=== PATIENT | male | born 1935 | race American Indian/Alaskan Native ===

== ENCOUNTER 2017-10-21 16:24 | Inpatient (IN) | payer MEDICARE, MEDICAID ==
[2017-10-21 17:34] LABS: Basophils % (Auto) 0.3 % (0.0-1.8); Eosinophils % (Auto) 0.7 % (0.0-4.3); Hematocrit 33.8 % (35.5-45.6); Hemoglobin 11.3 gm/dl (11.8-15.2); Mean Corpuscular HGB Conc 34 % (32-34); Mean Corpuscular Hemoglobin 35 pg (28-32); Mean Corpuscular Volume 104 fl (84-94); Platelet Count 256 K/mm3 (140-440); Red Blood Count 3.24 M/mm3 (3.65-5.03); Red Cell Distribution Width 14.6 % (13.2-15.2)
[2017-10-21 17:46] LABS: Alanine Aminotransferase 10 units/L (7-56); Albumin 4.5 g/dL (3.9-5); Albumin/Globulin Ratio 1.4 %; Alkaline Phosphatase 88 units/L (35-129); Anion Gap 24 mmol/L; BUN/Creatinine Ratio 15; Blood Urea Nitrogen 20 mg/dL (9-20); Calcium 9.7 mg/dL (8.4-10.2); Carbon Dioxide 22 mmol/L (22-30); Chloride 97.7 mmol/L (98-107); Glucose 84 mg/dL (75-100); Potassium 4.3 mmol/L (3.6-5.0); Sodium 139 mmol/L (137-145); Total Protein 7.7 g/dL (6.3-8.2)
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
[2017-10-21 18:03] LABS: Urine Drugs of Abuse Note Disclamer
[2017-10-21 18:04] LABS: Creatine Kinase MB 7.6 ng/mL (0.0-4.0)
[2017-10-21 18:05] LABS: Creatine Kinase 430 units/L (55-170)
[2017-10-21 18:19] LABS: Bacteria,Urine 1+ /HPF (Negative); Bilirubin,Urine NEG (Negative); Blood,Urine NEG (Negative); Ketones,Urine TR mg/dL (Negative); Leukocyte Esterase,Urine NEG (Negative); Mucus,Urine FEW /HPF; Nitrite,Urine NEG (Negative); Protein,Urine <15 mg/dL mg/dL (Negative); Urobilinogen,Urine < 2.0 mg/dL (<2.0); WBC,Urine < 1.0 /HPF (0.0-6.0)
--- NOTE | 2017-10-21 18:56 | Cat Scan Report ---
FINAL REPORT EXAM: CT HEAD/BRAIN WO CON HISTORY: Syncope TECHNIQUE: Standard unenhanced CT of the head at 5.0 millimeter axial increments PRIORS: None. FINDINGS: The ventricular system is normal in size and configuration. There is mild cerebral and cerebellar atrophy. Small vessel ischemic changes are noted in the periventricular white matter bilaterally.. There is no evidence for mass lesion, mass effect, midline shift, acute intracranial hemorrhage, or acute ischemia/ infarction. Visualized paranasal sinuses demonstrates extensive mucosal thickening in the right maxillary sinus. There is also mild mucosal thickening in the right sphenoid sinus.. IMPRESSION: Mild cerebellar and cerebral atrophy with small vessel ischemic changes. No acute intracranial process noted.
[2017-10-21] MEDS ORDERED: ASPIRIN PO ONE (19:30)
[2017-10-21] MEDS ORDERED: DULCOLAX PR PRN (22:48)
[2017-10-21] MEDS ORDERED: MILK OF MAGNESIA PO PRN (22:48)
[2017-10-21] MEDS ORDERED: TYLENOL PO PRN (22:48)
[2017-10-21] MEDS ORDERED: ZOFRAN IV PRN (22:48)
[2017-10-21] MEDS ORDERED: ATIVAN IV PRN ×2 (22:51)
--- NOTE | 2017-10-21 22:51 | History and Physical Report ---
History of Present Illness Date of examination: 10/21/17 Date of admission: 10/21/17 19:26 History of present illness: 81-year-old male with a history of hypertension, comes emergency room because he was outside today raking leaves, went inside and then had a syncopal episode. It's unclear how long he syncopized for Review Of Systems: Constitutional: no weight loss Ears, eyes, nose, mouth and throat: no nasal congestion, no nasal discharge, no sinus pressure, blurry vision, diplopia Neck: No neck pain or rigidity. Cardiovascular:no chest pain, orthopnea, palpitations Respiratory: No shortness of breath, cough Gastrointestinal: no abdominal pain, hematochezia Genitourinary : no dysuria, frequency , hematuria Musculoskeletal: no muscle ache Integumentary: no rash, no pruritis Neurological: no parathesias, focal weakness Endocrine: no cold or heat intolerance, no polyuria or polydipsia Hematologic/Lymphatic: no easy bruising, no easy bleeding, no gland swelling Allergic/Immunologic: no urticaria, no angioedema. PAST MEDICAL HISTORY:hypertension PAST SURGICAL HISTORY: Left nephrectomy, hemorrhoidectomy, left knee FAMILY HISTORY: Hypertension SOCIAL HISTORY: Drinks 6 beers a day, no tobacco, drugs Medications and Allergies Allergies Allergy/AdvReac Type Severity Reaction Status Date / Time No Known Allergies Allergy Unverified 10/21/17 17:06 Home Medications Medication Instructions Recorded Confirmed Last Taken Type Cyanocobalamin [Vitamin B-12] 200 mcg PO QDAY #30 tablet 10/24/17 Unknown Rx amLODIPine [Norvasc] 10 mg PO QDAY #30 tablet 10/24/17 Unknown Rx Exam - Physical Exam Narrative exam: Gen. appearance: Patient lying in bed in no acute distress HEENT: Normocephalic/atraumatic, pupils equal round reactive to light, extra alkaline movement intact, no scleral icterus, no JVD or thyromegaly or nodule, neck is supple, mucous membrane moist, no erythema or exudate Heart: S1-S2, regular rate and rhythm Lungs: Clear to auscultation bilateral breathing comfortable Abdomen: Positive bowel sounds, nontender, nondistended, no organomegaly Extremities: No edema, cyanosis, clubbing Neuro:: Oriented 3 , cranial nerves II-12 intact, speech, motor intact Skin: No rash, nodules, warm dry - Constitutional Vitals: Temp Pulse Resp BP Pulse Ox 98.5 F 80 18 168/91 100 10/21/17 21:45 10/21/17 21:45 10/21/17 21:45 10/21/17 21:45 10/21/17 21:45 Results - Labs CBC & Chem 7: 10/22/17 04:59 10/23/17 05:04 Labs: Abnormal lab results 10/21/17 10/21/17 10/21/17 Range/Units 17:10 17:10 17:10 RBC 3.24 L (3.65-5.03) M/mm3 Hgb 11.3 L (11.8-15.2) gm/dl Hct 33.8 L (35.5-45.6) % MCV 104 H (84-94) fl MCH 35 H (28-32) pg Lymph % (Auto) 10.4 L (13.4-35.0) % [place] % (Auto) 10.4 H (0.0-7.3) % Lymph # 0.6 L (1.2-5.4) K/mm3 Seg Neutrophils % 78.2 H (40.0-70.0) % Chloride 97.7 L (98-107) mmol/L Lactic Acid 3.90 H* (0.7-2.0) mmol/L Total Creatine Kinase (55-170) units/L CK-MB (CK-2) (0.0-4.0) ng/mL Salicylates (2.8-20.0) mg/dL 10/21/17 10/21/17 Range/Units 17:10 17:10 RBC (3.65-5.03) M/mm3 Hgb (11.8-15.2) gm/dl Hct (35.5-45.6) % MCV (84-94) fl MCH (28-32) pg Lymph % (Auto) (13.4-35.0) % [place] % (Auto) (0.0-7.3) % Lymph # (1.2-5.4) K/mm3 Seg Neutrophils % (40.0-70.0) % Chloride (98-107) mmol/L Lactic Acid (0.7-2.0) mmol/L Total Creatine Kinase 430 H (55-170) units/L CK-MB (CK-2) 7.6 H (0.0-4.0) ng/mL Salicylates < 0.3 L (2.8-20.0) mg/dL - Imaging and Cardiology EKG: image reviewed Chest x-ray: image reviewed CT Scan - head: report reviewed Assessment and Plan Assessment Syncope Hypertension malignant Alcohol abuse Plan. Admitted to medicine and mitral cardiac enzymes, carotid Doppler, echo, consult cardiology iv hydralazine for blood pressure control, start CIWA protocol with IV Ativan DVT prophylaxis
[2017-10-22 00:17] LABS: Creatine Kinase 369 units/L (55-170)
[2017-10-22 05:22] LABS: Hematocrit 30.3 % (35.5-45.6); Mean Corpuscular HGB Conc 33 % (32-34); Mean Corpuscular Hemoglobin 34 pg (28-32); Mean Corpuscular Volume 103 fl (84-94); Platelet Count 265 K/mm3 (140-440); Red Blood Count 2.96 M/mm3 (3.65-5.03); Red Cell Distribution Width 14.4 % (13.2-15.2); White Blood Count 4.7 K/mm3 (4.5-11.0)
[2017-10-22 05:40] LABS: Chloride 104.6 mmol/L (98-107); Potassium 4.6 mmol/L (3.6-5.0)
[2017-10-22 05:43] LABS: Creatine Kinase 284 units/L (55-170)
[2017-10-22 06:34] LABS: Basophils % (Manual) 0 % (0.0-1.8); Blastocytes % (Manual) 0 %
[2017-10-22 06:35] LABS: Anisocytosis 1+; Diff Status Complete; Platelet Estimate Consistent w Auto
[2017-10-22] MEDS: NACL 0.45% 1000 ML 1,000 ML IV SCH (06:43)
[2017-10-22] MEDS ORDERED: VITAMIN B-1 100 MG, FOLVITE 1 MG, INFUVITE 10 ML in NACL 0.9% 1000 ML 1,000 ML IV ONE (10:00)
[2017-10-22] MEDS: NORVASC PO SCH (10:33)
--- NOTE | 2017-10-22 12:01 | Consultation ---
History of Present Illness Consult date: 10/22/17 Consult reason: syncope History of present illness: 81yr old male who was brought in with alteration of mental status. It's reported family member found the patient with alteration of mental status after he worked in the yard. There was no report of chest pain or shortness of breath. Patient denies palpitations. An ECG is a sinus rhythm, no acute ischemic changes. Cardiac consultation requested for further evaluation. Medications and Allergies Allergies Allergy/AdvReac Type Severity Reaction Status Date / Time No Known Allergies Allergy Unverified 10/21/17 17:06 Home Medications Medication Instructions Recorded Confirmed Last Taken Type No Known Home Medications [No 10/21/17 10/21/17 Unknown History Reported Home Medications] Active Meds: Active Medications Acetaminophen (Tylenol) 650 mg PO Q4H PRN PRN Reason: Pain MILD(1-3)/Fever >100.5/ALVES Amlodipine Besylate (Norvasc) 10 mg PO QDAY ROSE MARY Last Admin: 10/22/17 10:33 Dose: 10 mg Bisacodyl (Dulcolax) 10 mg MI QDAY PRN PRN Reason: Constipation unrelieved by MOM Sodium Chloride (Nacl 0.45% 1000 Ml) 1,000 mls @ 75 mls/hr IV DIRECT ROSE MARY Last Admin: 10/22/17 06:43 Dose: 75 mls/hr Thiamine HCl 100 mg/ Folic Acid 1 mg/ Multivitamins/Minerals 10 ml/ Sodium Chloride 1,011.2 mls @ 250 mls/hr IV ONCE ONE Stop: 10/22/17 14:02 Last Admin: 10/22/17 10:40 Dose: 250 mls/hr Lorazepam (Ativan) 2 mg IV Q1HR PRN PRN Reason: CIWA-Ar 8-15 Lorazepam (Ativan) 4 mg IV Q1HR PRN PRN Reason: CIWA-Ar 16-25 Magnesium Hydroxide (Milk Of Magnesia) 30 ml PO Q4H PRN PRN Reason: Constipation Ondansetron HCl (Zofran) 4 mg IV Q8H PRN PRN Reason: N/V unrelieved by Reglan Physical Examination Vital Signs Pulse 90 10/21/17 16:52 General appearance: no acute distress Cardiac: Positive: Reg Rate and Rhythm Neuro: Positive: Grossly Intact Results 10/22/17 04:59 10/22/17 04:59 Cardiac Enzymes 10/21/17 10/21/17 10/21/17 Range/Units 17:10 17:10 23:21 AST 29 (5-40) units/L CK-MB (CK-2) 7.6 H 6.0 H (0.0-4.0) ng/mL 10/22/17 Range/Units 04:59 AST (5-40) units/L CK-MB (CK-2) 4.0 (0.0-4.0) ng/mL CBC 10/21/17 10/22/17 Range/Units 17:10 04:59 WBC 6.0 4.7 (4.5-11.0) K/mm3 RBC 3.24 L 2.96 L (3.65-5.03) M/mm3 Hgb 11.3 L 10.0 L (11.8-15.2) gm/dl Hct 33.8 L 30.3 L (35.5-45.6) % Plt Count 256 265 (140-440) K/mm3 Lymph # 0.6 L (1.2-5.4) K/mm3 [place] # 0.6 (0.0-0.8) K/mm3 Eos # 0.0 (0.0-0.4) K/mm3 Baso # 0.0 (0.0-0.1) K/mm3 Comprehensive Metabolic Panel 10/21/17 10/22/17 Range/Units 17:10 04:59 Sodium 139 143 (137-145) mmol/L Potassium 4.3 4.6 (3.6-5.0) mmol/L Chloride 97.7 L 104.6 (98-107) mmol/L Carbon Dioxide 22 25 (22-30) mmol/L BUN 20 24 H (9-20) mg/dL Creatinine 1.3 1.5 (0.8-1.5) mg/dL Glucose 84 103 H (75-100) mg/dL Calcium 9.7 9.0 (8.4-10.2) mg/dL AST 29 (5-40) units/L ALT 10 (7-56) units/L Alkaline Phosphatase 88 (35-129) units/L Total Protein 7.7 (6.3-8.2) g/dL Albumin 4.5 (3.9-5) g/dL
--- NOTE | 2017-10-22 22:32 | Progress Note ---
Assessment and Plan Assessment and plan: 81 yo AAM with alcohol abuse admitted for presumed syncopal episode vs AMS Syncope Questionable syncope versus altered mental status due to alcohol use CT head with no acute abnormalities Carotid Doppler weight less than 50% stenosis bilaterally EKG with no acute changes Cardiology consulted and plans to obtain echocardiogram and stress test for cardiac ischemic assessment Alcohol abuse Give banana bag [place] protocol Counseled regarding importance of quitting Macrocytic anemia Likely secondary to alcohol abuse Check B12 and folate Elevated BP/Hypertension Start amlodipine Monitor BP Acute kidney injury Give IV fluids Monitor BUN/creatinine and electrolytes DVT/GI prophylaxis History Interval history: no complaints Hospitalist Physical - Constitutional Vitals: Temp Pulse Resp BP Pulse Ox 98.2 F 89 18 145/73 95 10/22/17 19:38 10/22/17 19:38 10/22/17 19:38 10/22/17 19:38 10/22/17 21:14 General appearance: Present: no acute distress - EENT Eyes: Present: PERRL, EOM intact - Neck Neck: Present: supple, normal ROM. Absent: masses or JVD - Respiratory Respiratory effort: normal Respiratory: bilateral: CTA, negative: rhonchi, wheezing - Cardiovascular Rhythm: regular Heart Sounds: Present: S1 & S2. Absent: systolic murmur - Extremities Extremities: no ischemia - Abdominal General gastrointestinal: soft, non-tender, non-distended, normal bowel sounds - Psychiatric Psychiatric: cooperative - Neurologic Neurologic: CNII-XII intact, no focal deficits Results - Labs CBC & Chem 7: 10/22/17 04:59 10/23/17 05:04 Labs: Laboratory Last Values WBC 4.7 K/mm3 (4.5-11.0) 10/22/17 04:59 RBC 2.96 M/mm3 (3.65-5.03) L 10/22/17 04:59 Hgb 10.0 gm/dl (11.8-15.2) L 10/22/17 04:59 Hct 30.3 % (35.5-45.6) L 10/22/17 04:59 MCV 103 fl (84-94) H 10/22/17 04:59 MCH 34 pg (28-32) H 10/22/17 04:59 MCHC 33 % (32-34) 10/22/17 04:59 RDW 14.4 % (13.2-15.2) 10/22/17 04:59 Plt Count 265 K/mm3 (140-440) 10/22/17 04:59 Lymph % (Auto) 10.4 % (13.4-35.0) L 10/21/17 17:10 [place] % (Auto) Knit Goods Mender 10/22/17 04:59 Eos % (Auto) 0.7 % (0.0-4.3) 10/21/17 17:10 Baso % (Auto) 0.3 % (0.0-1.8) 10/21/17 17:10 Lymph # 0.6 K/mm3 (1.2-5.4) L 10/21/17 17:10 [place] # 0.6 K/mm3 (0.0-0.8) 10/21/17 17:10 Eos # 0.0 K/mm3 (0.0-0.4) 10/21/17 17:10 Baso # 0.0 K/mm3 (0.0-0.1) 10/21/17 17:10 Add Manual Diff Complete 10/22/17 04:59 Total Counted 100 10/22/17 04:59 Seg Neutrophils % 78.2 % (40.0-70.0) H 10/21/17 17:10 Seg Neuts % (Manual) 69.0 % (40.0-70.0) 10/22/17 04:59 Band Neutrophils % 2.0 % 10/22/17 04:59 Lymphocytes % (Manual) 17.0 % (13.4-35.0) 10/22/17 04:59 Reactive Lymphs % (Man) 0 % 10/22/17 04:59 Monocytes % (Manual) 9.0 % (0.0-7.3) H 10/22/17 04:59 Eosinophils % (Manual) 3.0 % (0.0-4.3) 10/22/17 04:59 Basophils % (Manual) 0 % (0.0-1.8) 10/22/17 04:59 Metamyelocytes % 0 % 10/22/17 04:59 Myelocytes % 0 % 10/22/17 04:59 Promyelocytes % 0 % 10/22/17 04:59 Blast Cells % 0 % 10/22/17 04:59 Nucleated RBC % Not Reportable 10/22/17 04:59 Seg Neutrophils # 4.7 K/mm3 (1.8-7.7) 10/21/17 17:10 Seg Neutrophils # Man 3.2 K/mm3 (1.8-7.7) 10/22/17 04:59 Band Neutrophils # 0.1 K/mm3 10/22/17 04:59 Lymphocytes # (Manual) 0.8 K/mm3 (1.2-5.4) L 10/22/17 04:59 Abs React Lymphs (Man) 0.0 K/mm3 10/22/17 04:59 Monocytes # (Manual) 0.4 K/mm3 (0.0-0.8) 10/22/17 04:59 Eosinophils # (Manual) 0.1 K/mm3 (0.0-0.4) 10/22/17 04:59 Basophils # (Manual) 0.0 K/mm3 (0.0-0.1) 10/22/17 04:59 Metamyelocytes # 0.0 K/mm3 10/22/17 04:59 Myelocytes # 0.0 K/mm3 10/22/17 04:59 Promyelocytes # 0.0 K/mm3 10/22/17 04:59 Blast Cells # 0.0 K/mm3 10/22/17 04:59 WBC Morphology Not Reportable 10/22/17 04:59 Hypersegmented Neuts Not Reportable 10/22/17 04:59 Hyposegmented Neuts Not Reportable 10/22/17 04:59 Hypogranular Neuts Not Reportable 10/22/17 04:59 Smudge Cells Not Reportable 10/22/17 04:59 Toxic Granulation Not Reportable 10/22/17 04:59 Toxic Vacuolation Not Reportable 10/22/17 04:59 Dohle Bodies Not Reportable 10/22/17 04:59 Pelger-Huet Anomaly Not Reportable 10/22/17 04:59 Addison Rods Not Reportable 10/22/17 04:59 Platelet Estimate Consistent w auto 10/22/17 04:59 Clumped Platelets Not Reportable 10/22/17 04:59 Plt Clumps, EDTA Not Reportable 10/22/17 04:59 Large Platelets Not Reportable 10/22/17 04:59 Giant Platelets Not Reportable 10/22/17 04:59 Platelet Satelliting Not Reportable 10/22/17 04:59 Plt Morphology Comment Not Reportable 10/22/17 04:59 RBC Morphology Not Reportable 10/22/17 04:59 Dimorphic RBCs Not Reportable 10/22/17 04:59 Polychromasia Not Reportable 10/22/17 04:59 Hypochromasia Not Reportable 10/22/17 04:59 Poikilocytosis Not Reportable 10/22/17 04:59 Anisocytosis 1+ 10/22/17 04:59 Microcytosis Not Reportable 10/22/17 04:59 Macrocytosis Not Reportable 10/22/17 04:59 Spherocytes Not Reportable 10/22/17 04:59 Pappenheimer Bodies Not Reportable 10/22/17 04:59 Sickle Cells Not Reportable 10/22/17 04:59 Target Cells Not Reportable 10/22/17 04:59 Tear Drop Cells Not Reportable 10/22/17 04:59 Ovalocytes Not Reportable 10/22/17 04:59 Helmet Cells Not Reportable 10/22/17 04:59 [place] Bodies Not Reportable 10/22/17 04:59 [place] Rings Not Reportable 10/22/17 04:59 [place] Cells Not Reportable 10/22/17 04:59 Bite Cells Not Reportable 10/22/17 04:59 Crenated Cell Not Reportable 10/22/17 04:59 Elliptocytes Not Reportable 10/22/17 04:59 Acanthocytes (Spur) Not Reportable 10/22/17 04:59 Rouleaux Not Reportable 10/22/17 04:59 Hemoglobin C Crystals Not Reportable 10/22/17 04:59 Schistocytes Not Reportable 10/22/17 04:59 Malaria parasites Not Reportable 10/22/17 04:59 Kasi Bodies Not Reportable 10/22/17 04:59 Hem Pathologist Commnt No 10/22/17 04:59 Sodium 143 mmol/L (137-145) 10/22/17 04:59 Potassium 4.6 mmol/L (3.6-5.0) 10/22/17 04:59 Chloride 104.6 mmol/L (98-107) 10/22/17 04:59 Carbon Dioxide 25 mmol/L (22-30) 10/22/17 04:59 Anion Gap 18 mmol/L 10/22/17 04:59 BUN 24 mg/dL (9-20) H 10/22/17 04:59 Creatinine 1.5 mg/dL (0.8-1.5) 10/22/17 04:59 Estimated GFR 54 ml/min 10/22/17 04:59 BUN/Creatinine Ratio 16 % 10/22/17 04:59 Glucose 103 mg/dL (75-100) H 10/22/17 04:59 Lactic Acid 1.90 mmol/L (0.7-2.0) 10/21/17 20:15 Calcium 9.0 mg/dL (8.4-10.2) 10/22/17 04:59 Magnesium 1.80 mg/dL (1.7-2.3) 10/21/17 17:10 Total Bilirubin 0.70 mg/dL (0.1-1.2) 10/21/17 17:10 AST 29 units/L (5-40) 10/21/17 17:10 ALT 10 units/L (7-56) 10/21/17 17:10 Alkaline Phosphatase 88 units/L (35-129) 10/21/17 17:10 Total Creatine Kinase 284 units/L (55-170) H 10/22/17 04:59 CK-MB (CK-2) 4.0 ng/mL (0.0-4.0) 10/22/17 04:59 CK-MB (CK-2) Rel Index 1.4 (0-4) 10/22/17 04:59 Troponin T < 0.010 ng/mL (0.00-0.029) 10/22/17 04:59 Total Protein 7.7 g/dL (6.3-8.2) 10/21/17 17:10 Albumin 4.5 g/dL (3.9-5) 10/21/17 17:10 Albumin/Globulin Ratio 1.4 % 10/21/17 17:10 Vitamin B12 118.5 pg/mL (211-911) L 10/22/17 10:14 Folate 10.79 ng/mL (7.3-26.0) 10/22/17 10:14 TSH 2.990 mlU/mL (0.270-4.200) 10/21/17 17:10 Urine Color Yellow (Yellow) 10/21/17 18:03 Urine Turbidity Clear (Clear) 10/21/17 18:03 Urine pH 5.0 (5.0-7.0) 10/21/17 18:03 Ur Specific [place] 1.009 (1.003-1.030) 10/21/17 18:03 Urine Protein <15 mg/dl mg/dL (Negative) 10/21/17 18:03 Urine Glucose (UA) Neg mg/dL (Negative) 10/21/17 18:03 Urine Ketones Tr mg/dL (Negative) 10/21/17 18:03 Urine Blood Neg (Negative) 10/21/17 18:03 Urine Nitrite Neg (Negative) 10/21/17 18:03 Urine Bilirubin Neg (Negative) 10/21/17 18:03 Urine Urobilinogen < 2.0 mg/dL (<2.0) 10/21/17 18:03 Ur Leukocyte Esterase Neg (Negative) 10/21/17 18:03 Urine WBC (Auto) < 1.0 /HPF (0.0-6.0) 10/21/17 18:03 Urine RBC (Auto) 2.0 /HPF (0.0-6.0) 10/21/17 18:03 U Epithel Cells (Auto) < 1.0 /HPF (0-13.0) 10/21/17 18:03 Urine Bacteria (Auto) 1+ /HPF (Negative) 10/21/17 18:03 Urine Mucus Few /HPF 10/21/17 18:03 Salicylates < 0.3 mg/dL (2.8-20.0) L 10/21/17 17:10 Urine Opiates Screen Presumptive negative 10/21/17 18:03 Urine Methadone Screen Presumptive negative 10/21/17 18:03 Acetaminophen < 15.0 ug/mL (10.0-30.0) 10/21/17 17:10 Ur Barbiturates Screen Presumptive negative 10/21/17 18:03 Ur Phencyclidine Scrn Presumptive negative 10/21/17 18:03 Ur Amphetamines Screen Presumptive negative 10/21/17 18:03 U Benzodiazepines Scrn Presumptive negative 10/21/17 18:03 Urine Cocaine Screen Presumptive negative 10/21/17 18:03 U Marijuana (THC) Screen Presumptive negative 12/04/17 18:03 Drugs of Abuse Note Disclamer 10/21/17 18:03 Plasma/Serum Alcohol 0.05 gm% (0-0.07) 10/21/17 17:10
[2017-10-23] MEDS: NACL 0.45% 1000 ML 1,000 ML IV SCH ×2 (01:31→20:45)
[2017-10-23 06:03] LABS: Anion Gap 17 mmol/L; BUN/Creatinine Ratio 15; Blood Urea Nitrogen 15 mg/dL (9-20); Calcium 8.4 mg/dL (8.4-10.2); Carbon Dioxide 24 mmol/L (22-30); Chloride 103.7 mmol/L (98-107); Glucose 85 mg/dL (75-100); Potassium 3.9 mmol/L (3.6-5.0); Sodium 141 mmol/L (137-145)
[2017-10-23] MEDS: NORVASC PO SCH (09:46)
[2017-10-23] MEDS ORDERED: LEXISCAN IV ONE ×3 (10:40→11:18)
[2017-10-23] MEDS ORDERED: VITAMIN B-12 IM ONE ×2 (11:00→13:00)
[2017-10-23] MEDS ORDERED: VITAMIN B-12 PO SCH (11:00)
--- NOTE | 2017-10-23 11:15 | Progress Note ---
Assessment and Plan Altered mental status Questionable syncope EKG is normal sinus rhythm with poor with progression, normal ECG. Normal LVEF 55-60% on echocardiogram Plan: Persantine thallium stress test today for cardiac ischemic assessment. Results pending. Subjective Date of service: 10/23/17 Interval history: Patient has no complaints. For thallium stress test today. Objective Vital Signs Temp Pulse Resp BP BP Pulse Ox 10/23/17 10:00 98 10/23/17 09:46 165/80 10/23/17 08:46 98.6 F 65 18 165/84 98 10/23/17 04:56 98.1 F 69 18 141/61 95 10/23/17 00:03 98.1 F 79 18 123/63 97 10/22/17 21:14 95 10/22/17 19:38 98.2 F 89 18 145/73 100 10/22/17 19:25 74 10/22/17 16:35 72 131/68 95 10/22/17 12:12 70 168/73 98 10/22/17 12:00 72 - Physical Examination General: No Apparent Distress Cardiac: Positive: Reg Rate and Rhythm Neuro: Positive: Grossly Intact - Labs and Meds Comprehensive Metabolic Panel 10/23/17 Range/Units 05:04 Sodium 141 (137-145) mmol/L Potassium 3.9 (3.6-5.0) mmol/L Chloride 103.7 (98-107) mmol/L Carbon Dioxide 24 (22-30) mmol/L BUN 15 (9-20) mg/dL Creatinine 1.0 (0.8-1.5) mg/dL Glucose 85 (75-100) mg/dL Calcium 8.4 (8.4-10.2) mg/dL - Imaging and Cardiology EKG: image reviewed
[2017-10-23] MEDS ORDERED: MAGNESIUM SULFATE 1 GM in NACL 0.9% 50 ML IV ONE (11:30)
[2017-10-23] MEDS: VITAMIN B-12 PO SCH (14:42)
--- NOTE | 2017-10-23 19:03 | Progress Note ---
Assessment and Plan Assessment and plan: 81 yo AAM with alcohol abuse admitted for presumed syncopal episode vs AMS Syncope Questionable syncope versus altered mental status due to alcohol use CT head with no acute abnormalities Carotid Doppler weight less than 50% stenosis bilaterally EKG with no acute changes Cardiology consulted and obtained echocardiogram and stress test for cardiac ischemic assessment; awainting results Alcohol abuse S/p banana bag; start po thiamine, folate CIWA protocol Counseled regarding importance of quitting Macrocytic anemia Likely secondary to alcohol abuse and nutritional deficiencies; decreased B12; start supplementation Hypomagnesemia IV replacement and recheck in a.m. Hypertension Started on amlodipine Monitor BP Acute kidney injury Resolved with IV fluids DVT/GI prophylaxis History Interval history: doing well, no complaints Hospitalist Physical - Constitutional Vitals: Temp Pulse Resp BP Pulse Ox 98.4 F 87 18 136/75 97 10/23/17 17:02 10/23/17 17:02 10/23/17 17:02 10/23/17 17:02 10/23/17 17:02 General appearance: Present: no acute distress - EENT Eyes: Present: PERRL, EOM intact - Neck Neck: Present: supple, normal ROM. Absent: masses or JVD - Respiratory Respiratory effort: normal Respiratory: bilateral: CTA, negative: rhonchi, wheezing - Cardiovascular Rhythm: regular Heart Sounds: Present: S1 & S2. Absent: systolic murmur - Extremities Extremities: no ischemia - Abdominal General gastrointestinal: soft, non-tender, non-distended, normal bowel sounds - Psychiatric Psychiatric: cooperative - Neurologic Neurologic: CNII-XII intact, no focal deficits Results - Labs CBC & Chem 7: 10/22/17 04:59 10/23/17 05:04 Labs: Laboratory Last Values WBC 4.7 K/mm3 (4.5-11.0) 10/22/17 04:59 RBC 2.96 M/mm3 (3.65-5.03) L 10/22/17 04:59 Hgb 10.0 gm/dl (11.8-15.2) L 10/22/17 04:59 Hct 30.3 % (35.5-45.6) L 10/22/17 04:59 MCV 103 fl (84-94) H 10/22/17 04:59 MCH 34 pg (28-32) H 10/22/17 04:59 MCHC 33 % (32-34) 10/22/17 04:59 RDW 14.4 % (13.2-15.2) 10/22/17 04:59 Plt Count 265 K/mm3 (140-440) 10/22/17 04:59 Lymph % (Auto) 10.4 % (13.4-35.0) L 10/21/17 17:10 [place] % (Auto) [employer] Manager 10/22/17 04:59 Eos % (Auto) 0.7 % (0.0-4.3) 10/21/17 17:10 Baso % (Auto) 0.3 % (0.0-1.8) 10/21/17 17:10 Lymph # 0.6 K/mm3 (1.2-5.4) L 10/21/17 17:10 [place] # 0.6 K/mm3 (0.0-0.8) 10/21/17 17:10 Eos # 0.0 K/mm3 (0.0-0.4) 10/21/17 17:10 Baso # 0.0 K/mm3 (0.0-0.1) 10/21/17 17:10 Add Manual Diff Complete 10/22/17 04:59 Total Counted 100 10/22/17 04:59 Seg Neutrophils % 78.2 % (40.0-70.0) H 10/21/17 17:10 Seg Neuts % (Manual) 69.0 % (40.0-70.0) 10/22/17 04:59 Band Neutrophils % 2.0 % 10/22/17 04:59 Lymphocytes % (Manual) 17.0 % (13.4-35.0) 10/22/17 04:59 Reactive Lymphs % (Man) 0 % 10/22/17 04:59 Monocytes % (Manual) 9.0 % (0.0-7.3) H 10/22/17 04:59 Eosinophils % (Manual) 3.0 % (0.0-4.3) 10/22/17 04:59 Basophils % (Manual) 0 % (0.0-1.8) 10/22/17 04:59 Metamyelocytes % 0 % 10/22/17 04:59 Myelocytes % 0 % 10/22/17 04:59 Promyelocytes % 0 % 10/22/17 04:59 Blast Cells % 0 % 10/22/17 04:59 Nucleated RBC % Not Reportable 10/22/17 04:59 Seg Neutrophils # 4.7 K/mm3 (1.8-7.7) 10/21/17 17:10 Seg Neutrophils # Man 3.2 K/mm3 (1.8-7.7) 10/22/17 04:59 Band Neutrophils # 0.1 K/mm3 10/22/17 04:59 Lymphocytes # (Manual) 0.8 K/mm3 (1.2-5.4) L 10/22/17 04:59 Abs React Lymphs (Man) 0.0 K/mm3 10/22/17 04:59 Monocytes # (Manual) 0.4 K/mm3 (0.0-0.8) 10/22/17 04:59 Eosinophils # (Manual) 0.1 K/mm3 (0.0-0.4) 10/22/17 04:59 Basophils # (Manual) 0.0 K/mm3 (0.0-0.1) 10/22/17 04:59 Metamyelocytes # 0.0 K/mm3 10/22/17 04:59 Myelocytes # 0.0 K/mm3 10/22/17 04:59 Promyelocytes # 0.0 K/mm3 10/22/17 04:59 Blast Cells # 0.0 K/mm3 10/22/17 04:59 WBC Morphology Not Reportable 10/22/17 04:59 Hypersegmented Neuts Not Reportable 10/22/17 04:59 Hyposegmented Neuts Not Reportable 10/22/17 04:59 Hypogranular Neuts Not Reportable 10/22/17 04:59 Smudge Cells Not Reportable 10/22/17 04:59 Toxic Granulation Not Reportable 10/22/17 04:59 Toxic Vacuolation Not Reportable 10/22/17 04:59 Dohle Bodies Not Reportable 10/22/17 04:59 Pelger-Huet Anomaly Not Reportable 10/22/17 04:59 [place] Rods Not Reportable 10/22/17 04:59 Platelet Estimate Consistent w auto 10/22/17 04:59 Clumped Platelets Not Reportable 10/22/17 04:59 Plt Clumps, EDTA Not Reportable 10/22/17 04:59 Large Platelets Not Reportable 10/22/17 04:59 Giant Platelets Not Reportable 10/22/17 04:59 Platelet Satelliting Not Reportable 10/22/17 04:59 Plt Morphology Comment Not Reportable 10/22/17 04:59 RBC Morphology Not Reportable 10/22/17 04:59 Dimorphic RBCs Not Reportable 10/22/17 04:59 Polychromasia Not Reportable 10/22/17 04:59 Hypochromasia Not Reportable 10/22/17 04:59 Poikilocytosis Not Reportable 10/22/17 04:59 Anisocytosis 1+ 10/22/17 04:59 Microcytosis Not Reportable 10/22/17 04:59 Macrocytosis Not Reportable 10/22/17 04:59 Spherocytes Not Reportable 10/22/17 04:59 Pappenheimer Bodies Not Reportable 10/22/17 04:59 Sickle Cells Not Reportable 10/22/17 04:59 Target Cells Not Reportable 10/22/17 04:59 Tear Drop Cells Not Reportable 10/22/17 04:59 Ovalocytes Not Reportable 10/22/17 04:59 Helmet Cells Not Reportable 10/22/17 04:59 [place] Bodies Not Reportable 10/22/17 04:59 [place] Rings Not Reportable 10/22/17 04:59 [place] Cells Not Reportable 10/22/17 04:59 Bite Cells Not Reportable 10/22/17 04:59 Crenated Cell Not Reportable 10/22/17 04:59 Elliptocytes Not Reportable 10/22/17 04:59 Acanthocytes (Spur) Not Reportable 10/22/17 04:59 Rouleaux Not Reportable 10/22/17 04:59 Hemoglobin C Crystals Not Reportable 10/22/17 04:59 Schistocytes Not Reportable 10/22/17 04:59 Malaria parasites Not Reportable 10/22/17 04:59 Kasi Bodies Not Reportable 10/22/17 04:59 Hem Pathologist Commnt No 10/22/17 04:59 Sodium 141 mmol/L (137-145) 10/23/17 05:04 Potassium 3.9 mmol/L (3.6-5.0) 10/23/17 05:04 Chloride 103.7 mmol/L (98-107) 10/23/17 05:04 Carbon Dioxide 24 mmol/L (22-30) 10/23/17 05:04 Anion Gap 17 mmol/L 10/23/17 05:04 BUN 15 mg/dL (9-20) 10/23/17 05:04 Creatinine 1.0 mg/dL (0.8-1.5) 10/23/17 05:04 Estimated GFR > 60 ml/min 10/23/17 05:04 BUN/Creatinine Ratio 15 % 10/23/17 05:04 Glucose 85 mg/dL (75-100) 10/23/17 05:04 Lactic Acid 1.90 mmol/L (0.7-2.0) 10/21/17 20:15 Calcium 8.4 mg/dL (8.4-10.2) 10/23/17 05:04 Magnesium 1.60 mg/dL (1.7-2.3) L 10/23/17 05:04 Total Bilirubin 0.70 mg/dL (0.1-1.2) 10/21/17 17:10 AST 29 units/L (5-40) 10/21/17 17:10 ALT 10 units/L (7-56) 10/21/17 17:10 Alkaline Phosphatase 88 units/L (35-129) 10/21/17 17:10 Total Creatine Kinase 284 units/L (55-170) H 10/22/17 04:59 CK-MB (CK-2) 4.0 ng/mL (0.0-4.0) 10/22/17 04:59 CK-MB (CK-2) Rel Index 1.4 (0-4) 10/22/17 04:59 Troponin T < 0.010 ng/mL (0.00-0.029) 10/22/17 04:59 Total Protein 7.7 g/dL (6.3-8.2) 10/21/17 17:10 Albumin 4.5 g/dL (3.9-5) 10/21/17 17:10 Albumin/Globulin Ratio 1.4 % 10/21/17 17:10 Vitamin B12 118.5 pg/mL (211-911) L 10/22/17 10:14 Folate 10.79 ng/mL (7.3-26.0) 10/22/17 10:14 TSH 2.990 mlU/mL (0.270-4.200) 10/21/17 17:10 Urine Color Yellow (Yellow) 10/21/17 18:03 Urine Turbidity Clear (Clear) 10/21/17 18:03 Urine pH 5.0 (5.0-7.0) 10/21/17 18:03 Ur Specific [place] 1.009 (1.003-1.030) 10/21/17 18:03 Urine Protein <15 mg/dl mg/dL (Negative) 10/21/17 18:03 Urine Glucose (UA) Neg mg/dL (Negative) 10/21/17 18:03 Urine Ketones Tr mg/dL (Negative) 10/21/17 18:03 Urine Blood Neg (Negative) 10/21/17 18:03 Urine Nitrite Neg (Negative) 10/21/17 18:03 Urine Bilirubin Neg (Negative) 10/21/17 18:03 Urine Urobilinogen < 2.0 mg/dL (<2.0) 10/21/17 18:03 Ur Leukocyte Esterase Neg (Negative) 10/21/17 18:03 Urine WBC (Auto) < 1.0 /HPF (0.0-6.0) 10/21/17 18:03 Urine RBC (Auto) 2.0 /HPF (0.0-6.0) 10/21/17 18:03 U Epithel Cells (Auto) < 1.0 /HPF (0-13.0) 10/21/17 18:03 Urine Bacteria (Auto) 1+ /HPF (Negative) 10/21/17 18:03 Urine Mucus Few /HPF 10/21/17 18:03 Salicylates < 0.3 mg/dL (2.8-20.0) L 10/21/17 17:10 Urine Opiates Screen Presumptive negative 10/21/17 18:03 Urine Methadone Screen Presumptive negative 10/21/17 18:03 Acetaminophen < 15.0 ug/mL (10.0-30.0) 10/21/17 17:10 Ur Barbiturates Screen Presumptive negative 10/21/17 18:03 Ur Phencyclidine Scrn Presumptive negative 10/21/17 18:03 Ur Amphetamines Screen Presumptive negative 10/21/17 18:03 U Benzodiazepines Scrn Presumptive negative 10/21/17 18:03 Urine Cocaine Screen Presumptive negative 10/21/17 18:03 U Marijuana (THC) Screen Presumptive negative 10/21/17 18:03 Drugs of Abuse Note Disclamer 10/21/17 18:03 Plasma/Serum Alcohol 0.05 gm% (0-0.07) 10/21/17 17:10
--- NOTE | 2017-10-24 03:35 | Treadmill Report ---
INDICATION: Chest pain. ORDERING PHYSICIAN: Vaibhav Michelle MD FINDINGS: 1. There is no scintigraphic evidence of myocardial ischemia. There is a mild decrease in uptake noted in the inferior wall on the stress imaging due to overlying diaphragmatic/gut uptake artifact. 2. The left ventricle is normal in size with a systolic function of 70% and normal wall motion and wall thickening. CONCLUSION: 1. No scintigraphic evidence of myocardial ischemia. 2. Small and mildly reversible inferior wall defect noted on stress imaging likely secondary to adjacent liver and bowel uptake artifact. 3. Normal left ventricular size and systolic function. 4. This is a low risk myocardial perfusion scan associated with a 1-year cardiovascular mortality of less than 1%. JOB# [id number] YOUSIF/NIKA
--- NOTE | 2017-10-24 08:05 | Vascular Lab Report ---
CAROTID DUPLEX STUDY: RIGHT PSVEDV CCA PROX:8010 CCA DIST:04587 ICA PROX:22549 ICA MID:6112 ICA DIST:7218 ECA: 9010 VERT: 73 16 LEFT PSVEDV CCA PROX:9614 CCA DIST:8112 ICA PROX:6014 ICA MID:8720 ICA DIST:9424 ECA: 8010 VERT: 71 10 REASON FOR EXAM: Carotid artery stenosis/syncope. COMMENTS ON THE RIGHT: Doppler frequency analysis is consistent with 16 to 49 percent diameter reduction of the internal carotid artery. Minimal amount of plaque is seen. The common carotid artery is patent. The external carotid artery is patent. The vertebral artery has antegrade flow. COMMENTS ON THE LEFT: Doppler frequency analysis is consistent with 16 to 49 percent diameter reduction of the internal carotid artery. Minimal amount of plaque is seen. The common carotid artery is patent. The external carotid artery is patent. The vertebral artery has antegrade flow. IMPRESSION: Less than 50% diameter reduction in the internal carotid arteries bilaterally. Consider repeat carotid artery duplex in 12 months.
[2017-10-24] MEDS: VITAMIN B-12 PO SCH (10:20)
[2017-10-24] MEDS: NORVASC PO SCH (10:20)
--- NOTE | 2017-10-24 11:30 | Progress Note ---
Assessment and Plan Altered mental status vs Syncope No ischemia on MPI this admission EKG is normal sinus rhythm with poor with progression, normal ECG. Normal LVEF 55-60% on echocardiogram No further cardiac workup indicated. Subjective Date of service: 10/24/17 Interval history: Patient has no complaints. No events on telemetry monitoring. Objective Vital Signs Temp Pulse Resp BP BP Pulse Ox 10/24/17 07:28 97 10/24/17 05:00 78 18 142/81 97 10/23/17 23:59 98.4 F 73 18 134/80 97 10/23/17 20:00 85 10/23/17 19:52 98.1 F 87 18 132/75 97 10/23/17 19:37 98 10/23/17 17:02 98.4 F 87 18 136/75 97 10/23/17 12:50 98.5 F 89 18 165/91 98 10/23/17 12:11 94 H 180/86 10/23/17 12:10 100 H 182/94 10/23/17 12:09 99 H 179/97 10/23/17 12:08 102 H 182/107 10/23/17 12:07 101 H 209/107 10/23/17 12:00 83 10/23/17 11:31 80 192/95 - Physical Examination General: No Apparent Distress HEENT: Positive: PERRL Cardiac: Positive: Reg Rate and Rhythm Lungs: Positive: Decreased Breath Sounds Neuro: Positive: Grossly Intact - Imaging and Cardiology EKG: image reviewed
--- NOTE | 2017-10-24 16:38 | Discharge Summary ---
Providers - Providers Date of Admission: 10/21/17 19:26 Date of discharge: 10/24/17 Attending physician: ZOIE SIM 10/21/17 22:48 Consult to Physician [CONS] Routine Consulting Provider: LILA COOL Reason For Exam: syncope Place consult to:: Dr. Cool Notified:: Gilma MARTINEZ Phone number called:: Was contact made?: Yes If yes, spoke with:: [facility] Time called:: 08:04 Primary care physician: [employer] ATTENDANT Hospitalization Reason for admission: AMS Condition: Stable Pertinent studies: CT head Carotid Doppler ECHO Stress test Hospital course: Patient is a 81 yo AAM with alcohol abuse admitted for presumed syncopal episode vs AMS. CT had showed no acute abnormalities as well as cardiac ischemic assessment (normal echocardiogram and carotid Doppler, negative stress test). Diagnosed with macrocytic anemia secondary to alcohol abuse and nutritional deficiencies started on supplementation as well as hypertension for which he was started on CCB. Counseled regarding importance of quitting drinking. Discharged in stable condition with PCP follow-up. Discharge diagnoses: Presumed Syncope Alcohol abuse Macrocytic anemia Hypomagnesemia Hypertension Acute kidney injury Disposition: DC-01 TO HOME OR SELFCARE Time spent for discharge: 35 min Core Measure Documentation - Palliative Care Palliative Care/ Comfort Measures: Not Applicable - Core Measures Any of the following diagnoses?: none Exam - Physical Exam Narrative exam: Seen and examined; - Constitutional Vitals: Temp Pulse Resp BP Pulse Ox 97.9 F 78 18 145/78 97 10/24/17 12:01 10/24/17 12:01 10/24/17 12:01 10/24/17 12:01 10/24/17 12:01 General appearance: Present: no acute distress - EENT Eyes: Present: PERRL, EOM intact. Absent: scleral icterus, conjunctival injection - Neck Neck: Present: supple, normal ROM. Absent: masses or JVD - Respiratory Respiratory effort: normal Respiratory: bilateral: CTA, negative: rhonchi, wheezing - Cardiovascular Rhythm: regular Heart Sounds: Present: S1 & S2. Absent: systolic murmur - Extremities Extremities: no ischemia - Abdominal General gastrointestinal: Present: soft, non-tender, non-distended, normal bowel sounds - Psychiatric Psychiatric: cooperative - Neurologic Neurologic: CNII-XII intact, no focal deficits Plan Activity: advance as tolerated, fall precautions Diet: low cholesterol, low salt Special Instructions: other (refrain from drinking alcohol) Follow up with: [facility] [Provider Group] - 7 Days PRIMARY CARE, [Primary Care Provider] - 3-5 Days Prescriptions: amLODIPine [Norvasc] 10 mg PO QDAY #30 tablet Cyanocobalamin [Vitamin B-12] 200 mcg PO QDAY #30 tablet
[2017-10-24 17:39] VITALS: BP 152/83
--- NOTE | 2017-10-31 13:34 | Query-Altered Level of Consc. ---
Jose Raul Charles____Dilip Date: 10/31/17 [employer]/CDS:____[place] / [place] Phone#:____[phone] Exercise your independent professional judgment when responding to this query. Questions asked do not imply a particular answer is desired or expected. We greatly appreciate your clarification on this issue. Clinical Documentation States: 81 year old male was admitted on 10/21/17 The discharge summary (Dr. Cherry) states " Reason for admission: AMS Patient is a 81 yo AAM with alcohol abuse admitted for presumed syncopal episode vs AMS Discharge diagnoses: Presumed Syncope " Clinical Findings Show: Please provide an appropriate diagnosis clarifying the Etiology and Acuity of this clinical scenario: [ ] Metabolic Encephalopathy [ ] Toxic Encephalopathy [ x] Toxic - Metabolic Encephalopathy [ ] Septic Encephalopathy with Sepsis [ ] Septic Encephalopathy without Sepsis [ ] Acute Hepatic Encephalopathy [ ] Subacute Hepatic Encephalopathy [ ] Encephalopathy [ ] Other: [ ] Unable To Determine [ ]Comment/Explanation: Present on Admission: [ x] Yes (Y) [ ] Clinically undeterminable (W) [ ] No (N) Please also document response in your Progress Notes and/or Discharge Summary and indicate if the condition was present on admission. HARMONYD
== END 2017-10-24 19:00 | disposition home or self-care (01) | DRG 682 ==
LOC: ED 16:24 → 4A 19:26
PROVIDERS: ADMIT Internal Medicine; ATTEND Internal Medicine
DX: N17.9 Acute kidney failure, unspecified (principal); G92 Toxic encephalopathy; F10.188 Alcohol abuse with other alcohol-induced disorder; R41.82 Altered mental status, unspecified; I10 Essential (primary) hypertension; Z90.5 Acquired absence of kidney; Z82.49 Family history of ischemic heart disease and other diseases of the circulatory system
CPT/HCPCS: 36415; 70450; 78452; 80048; 80053; 80307; 80320; 81001; 82140; 82550; 82553; 82607; 82747; 83735; 84443; 84484; 85007; 85025; 93005; 93010; 93017; 93306; 93880; 94760; A9502; G0480; J2785; J3411; J3420; J3475; J7030

== ENCOUNTER 2019-09-10 17:51 | Observation (INO) | payer MEDICARE ==
[2019-09-10] MEDS ORDERED: MORPHINE 2 MG/1 ML INJ IV ONE (18:38)
[2019-09-10] MEDS ORDERED: SODIUM CHLORIDE 0.9% 1000 ML 1,000 ML IV ONE (18:38)
[2019-09-10 19:27] LABS: Basophils # (Auto) 0.1 K/mm3 (0.0-0.1); Basophils % (Auto) 1.2 % (0.0-1.8); Eosinophils # (Auto) 0.1 K/mm3 (0.0-0.4); Eosinophils % (Auto) 1.4 % (0.0-4.3); Hematocrit 32.7 % (35.5-45.6); Lymphocytes # (Auto) 0.9 K/mm3 (1.2-5.4); Lymphocytes % (Auto) 17.7 % (13.4-35.0); Mean Corpuscular HGB Conc 34 % (32-34); Mean Corpuscular Volume 98 fl (84-94); Monocytes # (Auto) 0.6 K/mm3 (0.0-0.8); Monocytes % (Auto) 10.9 % (0.0-7.3); Platelet Count 423 K/mm3 (140-440); Red Blood Count 3.33 M/mm3 (3.65-5.03); Red Cell Distribution Width 13.5 % (13.2-15.2)
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
[2019-09-10 19:46] LABS: Bilirubin,Urine NEG (Negative); Blood,Urine NEG (Negative); Color,Urine Yellow (Yellow); Urobilinogen,Urine < 2.0 mg/dL (<2.0); WBC,Urine < 1.0 /HPF (0.0-6.0)
[2019-09-10 19:54] LABS: Calcium 10.5 mg/dL (8.4-10.2)
[2019-09-10 20:15] LABS: Chol/HDL Ratio 2.19 %
--- NOTE | 2019-09-10 20:53 | Cat Scan Report ---
CT ABDOMEN AND PELVIS WITHOUT CONTRAST INDICATION / CLINICAL INFORMATION: back pain. TECHNIQUE: Axial CT images were obtained through the abdomen and pelvis without IV contrast. All CT scans at [facility] location are performed using CT dose reduction for ALARA by means of automated exposure control. COMPARISON: None available. FINDINGS: LOWER CHEST: Minimum chronic pulmonary changes both bases LIVER: No significant abnormality. GALLBLADDER: Cholelithiasis BILE DUCTS: No significant abnormality. PANCREAS: No significant abnormality. SPLEEN: No significant abnormality. ADRENALS: No significant abnormality. RIGHT KIDNEY and URETER: No significant abnormality. LEFT KIDNEY and URETER: Absent STOMACH and SMALL BOWEL: No significant abnormality. COLON: No significant abnormality. APPENDIX: No significant abnormality. PERITONEUM: No free fluid. No free air. No fluid collection. LYMPH NODES: No significant adenopathy. AORTA and ARTERIES: Dense calcified atherosclerotic plaque abdominal aorta is major branches IVC and VEINS: No significant abnormality. URINARY BLADDER: No significant abnormality. REPRODUCTIVE ORGANS: No significant abnormality. ADDITIONAL FINDINGS: None. SKELETAL SYSTEM: Bones are osteopenic. Compression fracture L3 is noted age difficult to determine IMPRESSION: 1. No significant abnormality. 2. Compression fracture L3 3. Absent left kidney-previous nephrectomy 4. Cholelithiasis Signer Name: Milton Woodall MD Signed: 09/10/2019 8:49 PM Workstation Name: [id number]
[2019-09-10] MEDS ORDERED: ONDANSETRON 4 MG/2 ML INJ IV PRN (22:44)
[2019-09-10] MEDS ORDERED: ACETAMINOPHEN 325 MG TAB PO PRN (22:44)
[2019-09-10] MEDS ORDERED: oxyCODONE /ACETAMINOPHEN 5-325MG TAB PO PRN (22:54)
[2019-09-10] MEDS ORDERED: hydrALAZINE 20 MG/1 ML INJ IV PRN (22:57)
[2019-09-10] MEDS ORDERED: SODIUM CHLORIDE 0.9% 1000 ML 1,000 ML IV SCH (23:00)
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
[2019-09-11] MEDS ORDERED: LORazepam 2 MG/ML VIAL IV PRN ×2 (00:32)
[2019-09-11 08:05] LABS: Basophils % (Auto) 0.6 % (0.0-1.8); Eosinophils # (Auto) 0.1 K/mm3 (0.0-0.4); Eosinophils % (Auto) 1.8 % (0.0-4.3); Hematocrit 29.4 % (35.5-45.6); Hemoglobin 10.1 gm/dl (11.8-15.2); Lymphocytes # (Auto) 0.9 K/mm3 (1.2-5.4); Lymphocytes % (Auto) 20.2 % (13.4-35.0); Mean Corpuscular HGB Conc 34 % (32-34); Mean Corpuscular Volume 98 fl (84-94); Monocytes # (Auto) 0.5 K/mm3 (0.0-0.8); Monocytes % (Auto) 10.4 % (0.0-7.3); Platelet Count 423 K/mm3 (140-440); Red Blood Count 3.02 M/mm3 (3.65-5.03); Red Cell Distribution Width 13.3 % (13.2-15.2)
[2019-09-11 08:22] LABS: Creatine Kinase MB 2.3 ng/mL (0.0-4.0)
[2019-09-11 08:23] LABS: BUN/Creatinine Ratio 18; Blood Urea Nitrogen 24 mg/dL (9-20); Calcium 9.7 mg/dL (8.4-10.2); Hemolysis Index 0
[2019-09-11 08:24] LABS: Creatine Kinase MB 2.1 ng/mL (0.0-4.0)
[2019-09-11] MEDS ORDERED: amLODIPine 5 MG TAB PO SCH (10:00)
[2019-09-11] MEDS ORDERED: METOPROLOL TARTRATE 50 MG TAB PO SCH (10:00)
[2019-09-11] MEDS ORDERED: HEPARIN 5,000 UNIT/1 ML VIAL SUB-Q SCH (10:00)
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
[2019-09-11 14:25] VITALS: BP 113/62
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
== END 2019-09-11 19:00 ==
LOC: ED 17:51 → INTOOBSV 22:44 → 2B-ACE 22:44
PROVIDERS: ADMIT Internal Medicine; ATTEND Internal Medicine
DX: M48.56XA Collapsed vertebra, not elsewhere classified, lumbar region, initial encounter for fracture (principal); N17.9 Acute kidney failure, unspecified; I73.9 Peripheral vascular disease, unspecified; E87.5 Hyperkalemia; E87.1 Hypo-osmolality and hyponatremia; D64.9 Anemia, unspecified; K80.20 Calculus of gallbladder without cholecystitis without obstruction; I10 Essential (primary) hypertension; F10.20 Alcohol dependence, uncomplicated; Z86.718 Personal history of other venous thrombosis and embolism
CPT/HCPCS: 36415; 74176; 80048; 80053; 80061; 81001; 82550; 82553; 83690; 84484; 85025; 93005; 93010; 93306; 96372; 96374; 99284; G0378; J1644; J2270; J7030

== ENCOUNTER 2020-09-22 10:04 | Outpatient (CLI) | payer MEDICARE ==
--- NOTE | 2020-09-22 14:08 | Cat Scan Report ---
CT ABDOMEN AND PELVIS WITHOUT CONTRAST INDICATION / CLINICAL INFORMATION: Hematuria. TECHNIQUE: Axial CT images were obtained through the abdomen and pelvis without IV contrast. All CT scans at this location are performed using CT dose reduction for ALARA by means of automated exposure control. COMPARISON: CT dated 09/10/19 FINDINGS: LOWER CHEST: Mild bibasilar scarring is unchanged. LIVER: Simple appearing cyst is unchanged. No acute abnormality. GALLBLADDER: Multiple small gallstones are unchanged. No inflammation. BILE DUCTS: No significant biliary ductal dilatation. Tiny 2.5 mm stone in the distal common bile marilyn t at the ampulla as seen on axial series 2 image 56 and coronal image 44. PANCREAS: No significant abnormality. SPLEEN: No significant abnormality. ADRENALS: No significant abnormality. RIGHT KIDNEY / URETER: No stones or hydronephrosis. Simple appearing cyst is unchanged. LEFT KIDNEY / URETER: Left nephrectomy. STOMACH / SMALL BOWEL: No significant abnormality. COLON: Diverticulosis without inflammation. APPENDIX: No significant abnormality. PERITONEUM: No free fluid. No free air. No fluid collection. LYMPH NODES: No significant adenopathy. AORTA / ARTERIES: Moderate atherosclerotic calcification without acute abnormality. 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 IVC / VEINS: No significant abnormality. URINARY BLADDER: Bladder is mildly distended and diffusely thick walled. No bladder stones. Small marita dder diverticula are present. Curvilinear hyperdensity in the dependent urinary bladder likely repres ents hematoma. REPRODUCTIVE ORGANS: No significant abnormality. ADDITIONAL FINDINGS: Collateral veins along the lower anterior abdominal wall/pelvis are unchanged. SKELETAL SYSTEM: Interval progression of L3 compression deformity. Stable mild T12 compression deform ity. No acute osseous abnormality. IMPRESSION: 1. No urinary tract stones or hydronephrosis. 2. Probable urinary bladder intravesical hematoma of uncertain etiology. 3. Bladder wall thickening with small diverticula which can be seen in chronic bladder outlet obstruc tion. 4. Cholelithiasis with nonobstructing distal common bile duct stone measuring 2.5 mm. Signer Name: Hola Whyte MD Signed: 09/22/2020 2:04 PM Workstation Name: [id number]
== END 2020-09-22 10:05 | disposition home or self-care (01) ==
LOC: CT 10:04
PROVIDERS: ATTEND Urology
DX: K80.20 Calculus of gallbladder without cholecystitis without obstruction (principal); N32.89 Other specified disorders of bladder; I70.0 Atherosclerosis of aorta; K57.30 Diverticulosis of large intestine without perforation or abscess without bleeding; R31.0 Gross hematuria; Z90.5 Acquired absence of kidney
CPT/HCPCS: 74176

== ENCOUNTER 2021-05-31 11:37 | Inpatient (IN) | payer MEDICARE, MEDICAID ==
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
--- NOTE | 2021-05-31 12:14 | Consultation ---
History of Present Illness - Reason for Consult Consult date: 05/31/21 Medications and Allergies Allergies Allergy/AdvReac Type Severity Reaction Status Date / Time No Known Allergies Allergy Unverified 10/21/17 17:06 Home Medications Medication Instructions Recorded Confirmed Last Taken Type Metoprolol [Lopressor TAB] 50 mg PO BID #60 tablet 09/11/19 Unknown Rx oxyCODONE /ACETAMINOPHEN [Percocet 1 tab PO Q6H PRN #15 tablet 09/11/19 Unknown Rx 5/325 mg]
--- NOTE | 2021-05-31 12:20 | Cat Scan Report ---
CT BRAIN: 05/31/2021 INDICATION / CLINICAL INFORMATION: Stroke symptoms. COMPARISON: 10/30/2018 FINDINGS: BRAIN/INTRACRANIAL STRUCTURES: Unenhanced CT images of the brain demonstrate no evidence of acute abn ormality. Ventricles and sulci are prominent in size, consistent with age-related atrophic change. Extensive chronic white matter hypoattenuation is present. There is no evidence of acute ischemic injury, hemorrhage, or mass. There are no abnormal extra-axial fluid collections. EXTRACRANIAL STRUCTURES: Unremarkable. IMPRESSION: No acute abnormality. Extensive chronic and age-related changes. No significant change when compared to 10/30/2018. Notification: in the emergency department 12:[address] scans at this location are performed using dose reduction to ALARA by means of automated expos ure control. Signer Name: Timbo Shah MD Signed: 05/31/2021 12:16 PM Workstation Name: [id number]
--- NOTE | 2021-05-31 12:25 | XRay Report ---
CHEST 1 VIEW 05/31/2021 12:14 PM INDICATION / CLINICAL INFORMATION: syncope. COMPARISON: None available. FINDINGS: SUPPORT DEVICES: None. HEART / MEDIASTINUM: No significant abnormality. LUNGS / PLEURA: No significant pulmonary or pleural abnormality. No pneumothorax. ADDITIONAL FINDINGS: No significant additional findings. IMPRESSION: 1. No acute findings. Signer Name: Poli Vidal MD Signed: 05/31/2021 12:21 PM Workstation Name: [id number]
--- NOTE | 2021-05-31 12:42 | Cat Scan Report ---
CT CERVICAL SPINE: 05/31/2021 INDICATION / CLINICAL INFORMATION: syncope/stroke. COMPARISON: None available. FINDINGS: CT images of the cervical spine were obtained. Images are evaluated in the axial, coronal, and sagitt al planes. There is no evidence of acute abnormality. The bones are diffusely osteopenic. Degenerative disc space narrowing is present at the C2-3 and C3-4 levels. There is no evidence of fracture. CRANIOCERVICAL JUNCTION: Unremarkable. PARASPINAL STRUCTURES: Unremarkable IMPRESSION: No acute abnormality. Osteopenia and degenerative changes. All CT scans at this location are performed using dose reduction to ALARA by means of automated expos ure control. Signer Name: Timbo Shah MD Signed: 05/31/2021 12:38 PM Workstation Name: [id number]
[2021-05-31 13:00] LABS: Basophils # (Auto) 0.1 K/mm3 (0.0-0.1); Basophils % (Auto) 0.8 % (0.0-1.8); Eosinophils # (Auto) 0.1 K/mm3 (0.0-0.4); Eosinophils % (Auto) 0.8 % (0.0-4.3); Hematocrit 39.7 % (35.5-45.6); Hemoglobin 13.1 gm/dl (11.8-15.2); Lymphocytes # (Auto) 1.1 K/mm3 (1.2-5.4); Mean Corpuscular HGB Conc 33 % (32-34); Mean Corpuscular Volume 96 fl (84-94); Monocytes # (Auto) 0.4 K/mm3 (0.0-0.8); Monocytes % (Auto) 5.2 % (0.0-7.3); Platelet Count 323 K/mm3 (140-440); Red Blood Count 4.14 M/mm3 (3.65-5.03); Red Cell Distribution Width 14.4 % (13.2-15.2)
[2021-05-31 13:11] LABS: INR 1.04 (0.87-1.13); Partial Thromboplastin Time 27.5 Sec. (24.2-36.6); Thrombin Time 18.1 Sec. (15.1-19.6)
[2021-05-31 13:14] LABS: Creatine Kinase MB 2.1 ng/mL (0.0-4.0)
[2021-05-31 13:15] LABS: Albumin 4.7 g/dL (3.9-5); Calcium 10.1 mg/dL (8.4-10.2)
[2021-05-31] MEDS ORDERED: LACTATED RINGERS 1,000 ML IV ONE (13:25)
[2021-05-31 17:35] LABS: Chol/HDL Ratio 2.51 %
[2021-05-31 20:09] LABS: Bilirubin,Urine NEG (Negative); Blood,Urine NEG (Negative); Color,Urine Yellow (Yellow); Mucus,Urine FEW /HPF; Sperm,Urine 1+ /HPF (NP); Urobilinogen,Urine < 2.0 mg/dL (<2.0)
[2021-05-31 20:10] LABS: Amphetamine Screen,Urine Negative; Benzodiazepines Screen,Urine Negative; Cannabinoid Screen,Urine Negative; Cocaine Screen,Urine Negative; Methadone Screen,Urine Negative; Opiate Screen,Urine Negative
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
[2021-06-01] MEDS ORDERED: HYDROmorphone 1 MG/1 ML INJ IV PRN (00:17)
[2021-06-01] MEDS ORDERED: ACETAMINOPHEN 325 MG TAB PO PRN (00:17)
[2021-06-01] MEDS ORDERED: oxyCODONE /ACETAMINOPHEN 5-325MG TAB PO PRN (00:17)
[2021-06-01] MEDS ORDERED: ONDANSETRON 4 MG/2 ML INJ IV PRN (00:17)
[2021-06-01] MEDS ORDERED: SODIUM CHLORIDE 0.45% 1000 ML 1,000 ML IV SCH (01:00)
[2021-06-01] MEDS: METOPROLOL TARTRATE 50 MG TAB PO SCH ×3 (03:19→16:40)
[2021-06-01] MEDS: FAMOTIDINE 20 MG/2 ML INJ IV SCH ×2 (08:51→09:02)
[2021-06-01] MEDS: NIFEdipine XL 30 MG TAB PO SCH ×2 (08:51→09:02)
--- NOTE | 2021-06-01 09:54 | Consultation ---
History of Present Illness - Reason for Consult Consult date: 06/01/21 acute renal failure - History of Present Illness 85-year-old male with history of EtOH dependence, mild dementia and hypertension was under the shoulder on 11 AM and was about to pass out. Did not pass out completely. Patient noticed right facial droop and a stroke alert was initiated by EMS. In the emergency room patient did not have any focal deficits. CT head was negative for acute intracranial process, CXR was normal . he was found to have elevated cr and K and was started on IVF and renal consult was requested Past History Past Medical History: hypertension Medications and Allergies Allergies Allergy/AdvReac Type Severity Reaction Status Date / Time No Known Allergies Allergy Unverified 10/21/17 17:06 Home Medications Medication Instructions Recorded Confirmed Last Taken Type Losartan [Cozaar] 25 mg PO QDAY 05/31/21 05/31/21 Unknown History Metoprolol [Lopressor TAB] 50 mg PO BID 05/31/21 05/31/21 Unknown History NIFEdipine [Nifedipine ER] 30 mg PO QDAY 05/31/21 05/31/21 Unknown History Active Meds: Active Medications Acetaminophen (Acetaminophen 325 Mg Tab) 650 mg PO Q4H PRN PRN Reason: Pain MILD(1-3)/Fever >100.5/ALVES Famotidine (Famotidine 20 Mg/2 Ml Inj) 20 mg IV QAM [facility] Last Admin: 06/01/21 09:02 Dose: 20 mg Documented by: Hydromorphone HCl (Hydromorphone 1 Mg/1 Ml Inj) 0.5 mg IV Q3H PRN PRN Reason: Pain , Severe (7-10) Sodium Bicarbonate 150 meq/ (Dextrose) 1,150 mls @ 125 mls/hr IV DIRECT [facility] Metoprolol Tartrate (Metoprolol Tartrate 50 Mg Tab) 50 mg PO BID@0800,1700 [facility] Last Admin: 06/01/21 08:44 Dose: 50 mg Documented by: Nifedipine (Nifedipine Xl 30 Mg Tab) 30 mg PO QDAY [facility] Last Admin: 06/01/21 09:02 Dose: 30 mg Documented by: Ondansetron HCl (Ondansetron 4 Mg/2 Ml Inj) 4 mg IV Q8H PRN PRN Reason: Nausea And Vomiting Oxycodone/Acetaminophen (Oxycodone /Acetaminophen 5-325mg Tab) 1 tab PO Q6H PRN PRN Reason: Pain, Moderate (4-6) Sodium Chloride (Sodium Chloride 0.9% 10 Ml Flush Syringe) 10 ml IV BID [facility] Last Admin: 06/01/21 09:02 Dose: 10 ml Documented by: Sodium Chloride (Sodium Chloride 0.9% 10 Ml Flush Syringe) 10 ml IV PRN PRN PRN Reason: LINE FLUSH Review of Systems All systems: negative (weakness) Exam - Vital Signs Vital signs: Vital Signs Pulse Resp 70 11 L 05/31/21 12:08 05/31/21 12:08 - General Appearance General appearance: well-developed, well-nourished EENT: ATNC, PERRL Neck: Present: neck supple Respiratory: Clear to Ascultation Heart: regular, S1S2 Gastrointestinal: Present: normoactive bowel sounds. Absent: tenderness, distended, masses Integumentary: no rash, warm and dry Neurologic: no asterixis Musculoskeletal: Present: other (no edema in BLE) Psychiatric: cooperative Results - Lab Results 05/31/21 11:46 05/31/21 11:46 Most recent lab results Calcium 10.1 mg/dL (8.4-10.2) 05/31/21 11:46 Assessment and Plan (1) Vasovagal near syncope (2) TAMANNA (acute kidney injury) (3) Hyperkalemia (4) Elevated troponin (5) Hypertension (6) Facial nerve disorder, unspecified TAMANNA is secondary to prerenal azotemia vs ATN, noted to have similar episodes in the past was started on IVF but no other treatment were documented for hyperkalemia, nephrology consult was not called to physician adapted physical education aide and immediate recommendation regarding treating hyperkalemia was not requested by primary team, no BMP this AM. STAT BMP and EKG ordered, will switch IVF to sodium bicarb 150 meq @ 125 cc/h renal US ordered urine lytes ordered renally dose meeds strict I&O daily weights Aly Gaffney MD [phone]
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
--- NOTE | 2021-06-01 10:43 | Electrocardiograph Report ---
[facility] Test Date: 2021-05-31 Test Time: 12:15:32 Pat Name: KIMBERLY SEAMAN Department: Room: A487 Gender: M [employer] Teacher: IFEANYI : 1935 Requested By: JUDY POWELL Order Number: [id number] Reading MD: Toño Hernández Measurements Intervals [place] Rate: 65 P: 46 VT: 169 QRS: 3 QRSD: 87 T: 34 QT: 388 QTc: 405 Interpretive Statements Sinus rhythm No previous ECG available for comparison Electronically Signed On 06-01-2021 10:43:25 EDT by Toño Hernández
--- NOTE | 2021-06-01 11:14 | Vascular Lab Report ---
DUPLEX DOPPLER ULTRASOUND CAROTID, BILATERAL INDICATION / CLINICAL INFORMATION: Near syncope. COMPARISON: None available. FINDINGS: RIGHT CAROTID: Moderate plaque in the CCA, carotid bifurcation - PLAQUE ESTIMATE (%): < 50% - CCA velocity: 112 cm/sec. - ICA peak systolic velocity: 98 cm/sec. - ICA/CCA PSV Ratio: 0.8 Right Vertebral Artery: Antegrade flow. LEFT CAROTID: Moderate plaque in CCA, ECA and ICA - PLAQUE ESTIMATE: < 50% - CCA velocity: 98 cm/sec. - ICA peak systolic velocity: 103 cm/sec. - ICA/CCA PSV Ratio: 1.06 Left Vertebral Artery: Antegrade flow. IMPRESSION: 1. Right Internal Carotid Artery: Less than 50% diameter stenosis. 2. Left Internal Carotid Artery: Less than 50% diameter stenosis. Moderate plaque in bilateral carotid arteries. Velocity criteria are extrapolated from diameter data as defined by the Society of Radiologists in Ul trasound Consensus Conference, Radiology 2003; 229;340-346. NO STENOSIS (NORMAL) * Plaque = none; ICA PSV < 125 cm/sec; ICA/CCA PSV Ratio < 2.0 <50% STENOSIS * Plaque < 50%; ICA PSV < 125 cm/sec; ICA/CCA PSV Ratio < 2.0 50-69% STENOSIS * Plaque > 50%; ICA PSV = 125-230 cm/sec; ICA/CCA PSV Ratio = 2.0-4.0 >70% BUT <100% STENOSIS * Plaque > 50%; ICA PSV > 230 cm/sec; ICA/CCA PSV Ratio > 4.0 NEAR OCCLUSION * Plaque = visible lumen; ICA PSV = high/low/none; ICA/CCA PSV Ratio = variable TOTAL OCCLUSION * Plaque = no lumen; ICA PSV = none; ICA/CCA PSV Ratio = N/A Signer Name: Chapincito Paul MD Signed: 06/01/2021 11:10 AM Workstation Name: [place] [id number]
[2021-06-01] MEDS: SODIUM BICARBONATE 150 MEQ in DEXTROSE 5% IN WATER 1,000 ML IV SCH (11:42)
[2021-06-01 12:05] LABS: Basophils % (Auto) 0.7 % (0.0-1.8); Eosinophils # (Auto) 0.1 K/mm3 (0.0-0.4); Eosinophils % (Auto) 1.4 % (0.0-4.3); Hemoglobin 11.9 gm/dl (11.8-15.2); Lymphocytes # (Auto) 0.8 K/mm3 (1.2-5.4); Mean Corpuscular HGB Conc 33 % (32-34); Mean Corpuscular Volume 94 fl (84-94); Monocytes # (Auto) 0.4 K/mm3 (0.0-0.8); Monocytes % (Auto) 8.4 % (0.0-7.3); Platelet Count 269 K/mm3 (140-440); Red Blood Count 3.83 M/mm3 (3.65-5.03); Red Cell Distribution Width 14.4 % (13.2-15.2)
[2021-06-01 12:24] LABS: Albumin 4.2 g/dL (3.9-5); BUN/Creatinine Ratio 24; Blood Urea Nitrogen 45 mg/dL (9-20); Calcium 9.9 mg/dL (8.4-10.2); Hemolysis Index 12
[2021-06-01 12:25] LABS: Alanine Aminotransferase < 5 units/L (7-56)
--- NOTE | 2021-06-01 12:34 | Progress Note ---
Assessment and Plan Assessment and plan: (1) Vasovagal near syncope Current Visit: Yes Status: Acute Plan to address problem: IV fluids Carotid duplex scan Neurology consult Echocardiogram (2) TAMANNA (acute kidney injury) Current Visit: Yes Status: Acute Plan to address problem: Possible ATN Nephrology consult IV fluids (3) Hyperkalemia Current Visit: Yes Status: Acute Plan to address problem: Treated in the emergency room Recheck potassium level (4) Elevated troponin Current Visit: Yes Status: Acute Plan to address problem: Secondary to elevated creatinine NSTEMI 2 (5) Hypertension Current Visit: Yes Status: Chronic Qualifiers: Hypertension type: primary hypertension Qualified Code(s): I10 - Essential (primary) hypertension Plan to address problem: Continue antihypertensives (6) Facial nerve disorder, unspecified Current Visit: Yes Status: Acute Plan to address problem: Transient (7) DVT prophylaxis Current Visit: Yes Status: Acute Plan to address problem: On heparin and GI prophylaxis 06/01/2021 -Neurology consulted for syncopal episode and echo, carotid Doppler pending. -Patient has hyperkalemia and I ordered Kayexalate, neurology consulted for TAMANNA and recommendations appreciated. Patient is on IV fluid. -Troponin trended down to normal History Interval history: Patient was seen and evaluated this morning, patient was confused Hospitalist Physical - Constitutional Vitals: Temp Pulse Resp BP Pulse Ox 97.9 F 69 16 152/75 99 06/01/21 08:25 06/01/21 08:44 06/01/21 08:25 06/01/21 08:44 06/01/21 09:07 General appearance: Present: no acute distress, well-nourished HEART Score - HEART Score Age: > 65 Risk factors: 1-2 risk factors Troponin: Troponin T 0.015 ng/mL (0.00-0.029) 05/31/21 18:06 Troponin: 1-3x normal limit - Critical Actions Critical Actions: 4-6 pts:12-16.6% risk of adverse cardiac event. Should be admitted Results - Labs CBC & Chem 7: 06/01/21 11:50 06/01/21 11:50 Labs: Laboratory Last Values WBC 4.7 K/mm3 (4.5-11.0) 06/01/21 11:50 RBC 3.83 M/mm3 (3.65-5.03) 06/01/21 11:50 Hgb 11.9 gm/dl (11.8-15.2) 06/01/21 11:50 Hct 36.0 % (35.5-45.6) 06/01/21 11:50 MCV 94 fl (84-94) 06/01/21 11:50 MCH 31 pg (28-32) 06/01/21 11:50 MCHC 33 % (32-34) 06/01/21 11:50 RDW 14.4 % (13.2-15.2) 06/01/21 11:50 Plt Count 269 K/mm3 (140-440) 06/01/21 11:50 Lymph % (Auto) 17.0 % (13.4-35.0) 06/01/21 11:50 [place] % (Auto) 8.4 % (0.0-7.3) H 06/01/21 11:50 Eos % (Auto) 1.4 % (0.0-4.3) 06/01/21 11:50 Baso % (Auto) 0.7 % (0.0-1.8) 06/01/21 11:50 Lymph # (Auto) 0.8 K/mm3 (1.2-5.4) L 06/01/21 11:50 [place] # (Auto) 0.4 K/mm3 (0.0-0.8) 06/01/21 11:50 Eos # (Auto) 0.1 K/mm3 (0.0-0.4) 06/01/21 11:50 Baso # (Auto) 0.0 K/mm3 (0.0-0.1) 06/01/21 11:50 Seg Neutrophils % 72.5 % (40.0-70.0) H 06/01/21 11:50 Seg Neutrophils # 3.4 K/mm3 (1.8-7.7) 06/01/21 11:50 PT 14.1 Sec. (12.2-14.9) 05/31/21 11:46 INR 1.04 (0.87-1.13) 05/31/21 11:46 APTT 27.5 Sec. (24.2-36.6) 05/31/21 11:46 Thrombin Time 18.1 Sec. (15.1-19.6) 05/31/21 11:46 Sodium 141 mmol/L (137-145) 06/01/21 11:50 Potassium 5.8 mmol/L (3.6-5.0) H 06/01/21 11:50 Chloride 105.8 mmol/L (98-107) 06/01/21 11:50 Carbon Dioxide 26 mmol/L (22-30) 06/01/21 11:50 Anion Gap 15 mmol/L 06/01/21 11:50 BUN 45 mg/dL (9-20) H 06/01/21 11:50 Creatinine 1.9 mg/dL (0.8-1.3) H 06/01/21 11:50 Estimated GFR 41 ml/min 06/01/21 11:50 BUN/Creatinine Ratio 24 % 06/01/21 11:50 Glucose 102 mg/dL (75-100) H 06/01/21 11:50 POC Glucose 75 mg/dL (70-105) 06/01/21 11:35 Hemoglobin A1c 6.5 % (4-6) H 06/01/21 11:50 Uric Acid 7.7 mg/dL (3.5-7.6) H 06/01/21 11:50 Calcium 9.9 mg/dL (8.4-10.2) 06/01/21 11:50 Total Bilirubin 0.20 mg/dL (0.1-1.2) 06/01/21 11:50 AST 12 units/L (5-40) 06/01/21 11:50 ALT < 5 units/L (7-56) L 06/01/21 11:50 Alkaline Phosphatase 86 units/L (35-129) 06/01/21 11:50 Total Creatine Kinase 93 units/L (55-170) 06/01/21 11:50 CK-MB (CK-2) 2.1 ng/mL (0.0-4.0) 05/31/21 11:46 CK-MB (CK-2) Rel Index 2.6 (0-4) 05/31/21 11:46 Troponin T 0.015 ng/mL (0.00-0.029) 05/31/21 18:06 Total Protein 7.7 g/dL (6.3-8.2) 06/01/21 11:50 Albumin 4.2 g/dL (3.9-5) 06/01/21 11:50 Albumin/Globulin Ratio 1.2 % 06/01/21 11:50 Triglycerides 103 mg/dL (2-149) 05/31/21 11:46 Cholesterol 108 mg/dL (50-199) 05/31/21 11:46 LDL Cholesterol Direct 50 mg/dL (50-130) 05/31/21 11:46 HDL Cholesterol 43 mg/dL (40-59) 05/31/21 11:46 Cholesterol/HDL Ratio 2.51 % 05/31/21 11:46 Urine Color Yellow (Yellow) 05/31/21 Unknown Urine Turbidity Clear (Clear) 05/31/21 Unknown Urine pH 5.0 (5.0-7.0) 05/31/21 Unknown Ur Specific [place] 1.016 (1.003-1.030) 05/31/21 Unknown Urine Protein 100 mg/dl mg/dL (Negative) 05/31/21 Unknown Urine Glucose (UA) Neg mg/dL (Negative) 05/31/21 Unknown Urine Ketones Neg mg/dL (Negative) 05/31/21 Unknown Urine Blood Neg (Negative) 05/31/21 Unknown Urine Nitrite Neg (Negative) 05/31/21 Unknown Urine Bilirubin Neg (Negative) 05/31/21 Unknown Urine Urobilinogen < 2.0 mg/dL (<2.0) 05/31/21 Unknown Ur Leukocyte Esterase Neg (Negative) 05/31/21 Unknown Urine WBC (Auto) 1.0 /HPF (0.0-6.0) 05/31/21 Unknown Urine RBC (Auto) 2.0 /HPF (0.0-6.0) 05/31/21 Unknown U Epithel Cells (Auto) 1.0 /HPF (0-13.0) 05/31/21 Unknown Urine Mucus Few /HPF 05/31/21 Unknown Urine Sperm 1+ /HPF (LIFT TRUCK MECHANIC) 05/31/21 Unknown Urine Opiates Screen Negative 05/31/21 Unknown Urine Methadone Screen Negative 05/31/21 Unknown Ur Barbiturates Screen Negative 05/31/21 Unknown Ur Phencyclidine Scrn Negative 05/31/21 Unknown Ur Amphetamines Screen Negative 05/31/21 Unknown U Benzodiazepines Scrn Negative 05/31/21 Unknown Urine Cocaine Screen Negative 05/31/21 Unknown U Marijuana (THC) Screen Negative 05/31/21 Unknown Drugs of Abuse Note Disclamer 05/31/21 Unknown Plasma/Serum Alcohol < 0.01 % (0-0.07) 05/31/21 11:46 [place]/IV: Voiding Method Toilet Active Medications - Current Medications Current Medications: Generic Name Dose Route Start Last Admin Trade Name Freq PRN Reason Stop Dose Admin Acetaminophen 650 mg 06/01/21 00:17 Acetaminophen 325 Mg Tab PO Q4H PRN Pain MILD(1-3)/Fever >100.5/ALVES Famotidine 20 mg 06/01/21 10:00 06/01/21 09:02 Famotidine 20 Mg/2 Ml Inj IV 20 mg QAM ROSE MARY Administration Hydromorphone HCl 0.5 mg 06/01/21 00:17 Hydromorphone 1 Mg/1 Ml Inj IV Q3H PRN Pain , Severe (7-10) Sodium Bicarbonate 150 meq/ 1,150 mls @ 125 mls/hr 06/01/21 10:30 06/01/21 11:42 Dextrose IV 125 mls/hr DIRECT ROSE MARY Administration Metoprolol Tartrate 50 mg 06/01/21 01:00 06/01/21 08:44 Metoprolol Tartrate 50 Mg Tab PO 50 mg BID@0800,1700 ROSE MARY Administration Nifedipine 30 mg 06/01/21 10:00 06/01/21 09:02 Nifedipine Xl 30 Mg Tab PO 30 mg QDAY ROSE MARY Administration Ondansetron HCl 4 mg 06/01/21 00:17 Ondansetron 4 Mg/2 Ml Inj IV Q8H PRN Nausea And Vomiting Oxycodone/Acetaminophen 1 tab 06/01/21 00:17 Oxycodone /Acetaminophen 5-325mg Tab PO Q6H PRN Pain, Moderate (4-6) Sodium Chloride 10 ml 06/01/21 10:00 06/01/21 09:02 Sodium Chloride 0.9% 10 Ml Flush Syringe IV 10 ml BID ROSE MARY Administration Sodium Chloride 10 ml 06/01/21 00:17 Sodium Chloride 0.9% 10 Ml Flush Syringe IV PRN PRN LINE FLUSH Sodium Polystyrene Sulfonate 60 gm 06/01/21 12:31 Sodium Polystyrene 15 Gm/60 Ml Oral Liqd PO 06/01/21 12:32 ONCE ONE
[2021-06-01] MEDS ORDERED: SODIUM POLYSTYRENE 15 GM/60 ML ORAL LIQD PO SCH (13:00)
--- NOTE | 2021-06-01 15:53 | Ultrasound Report ---
ULTRASOUND RENAL INDICATION / CLINICAL INFORMATION: Renal failure. Left nephrectomy. COMPARISON: CT abdomen/pelvis without contrast 09/22/2020. FINDINGS: RIGHT KIDNEY: Length = 14.1 cm. - Echogenicity: Increased. - Cortical Thickness: Normal. - Hydronephrosis: Mild pelviectasis. - Cyst / Mass: Simple appearing cyst measuring 1.9 x 1.7 x 1.5 cm within the upper pole. - Stones: None seen. LEFT KIDNEY: Surgically absent. No significant abnormality within the left renal fossa. URINARY BLADDER: No significant abnormality. FREE FLUID: None. ADDITIONAL FINDINGS: Cholelithiasis. IMPRESSION: 1. Left nephrectomy. 2. Increased right cortical echogenicity, ultimately nonspecific but can be seen with medical renal d isease. Scribed by: Yumiko Segura RDMS, RVT Scribed: 06/01/2021 11:55 AM I have reviewed the images, agree with this report, and edited this report as needed. Signer Name: Rogelio Angel MD Signed: 06/01/2021 3:49 PM Workstation Name: [id number]
[2021-06-02 07:24] LABS: Hematocrit 34.7 % (35.5-45.6); Hemoglobin 11.6 gm/dl (11.8-15.2); Mean Corpuscular HGB Conc 34 % (32-34); Mean Corpuscular Volume 94 fl (84-94); Platelet Count 217 K/mm3 (140-440); Red Cell Distribution Width 14.3 % (13.2-15.2)
[2021-06-02 07:30] LABS: Calcium 9.5 mg/dL (8.4-10.2)
[2021-06-02] MEDS: FAMOTIDINE 20 MG/2 ML INJ IV SCH (09:15)
[2021-06-02] MEDS: NIFEdipine XL 30 MG TAB PO SCH (09:15)
[2021-06-02] MEDS: METOPROLOL TARTRATE 50 MG TAB PO SCH ×2 (09:16→16:23)
[2021-06-02] MEDS: ASPIRIN EC 325 MG TAB PO SCH (09:21)
--- NOTE | 2021-06-02 09:55 | Progress Note ---
Assessment and Plan Assessment and plan: (1) Vasovagal near syncope Current Visit: Yes Status: Acute Plan to address problem: IV fluids Carotid duplex scan Neurology consult Echocardiogram (2) TAMANNA (acute kidney injury) Current Visit: Yes Status: Acute Plan to address problem: Possible ATN Nephrology consult IV fluids (3) Hyperkalemia Current Visit: Yes Status: Acute Plan to address problem: Treated in the emergency room Recheck potassium level (4) Elevated troponin Current Visit: Yes Status: Acute Plan to address problem: Secondary to elevated creatinine NSTEMI 2 (5) Hypertension Current Visit: Yes Status: Chronic Qualifiers: Hypertension type: primary hypertension Qualified Code(s): I10 - Essential (primary) hypertension Plan to address problem: Continue antihypertensives (6) Facial nerve disorder, unspecified Current Visit: Yes Status: Acute Plan to address problem: Transient (7) DVT prophylaxis Current Visit: Yes Status: Acute Plan to address problem: On heparin and GI prophylaxis 06/01/2021 -Neurology consulted for syncopal episode and echo, carotid Doppler pending. -Patient has hyperkalemia and I ordered Kayexalate, neurology consulted for TAMANNA and recommendations appreciated. Patient is on IV fluid. -Troponin trended down to normal 06/02/2021 -Patient was seen by neurology and recommend to get MRI. CT head, carotid Doppler, echo were unremarkable. -MRI is pending -Renal ultrasound was done back nephrology and showed left nephrectomy, patient's creatinine is still elevated, continue with IV fluids. -Hyperkalemia resolved. -PT OT evaluation History Interval history: Patient was seen and evaluated this morning, patient was confused Hospitalist Physical - Physical exam Narrative exam: Not in cardiopulmonary distress. The patient appeared well nourished and normally developed. Vital signs as documented. Head exam is unremarkable. No scleral icterus . Neck is without jugular venous distension, thyromegaly, or carotid bruits. Lungs are clear to auscultation. Cardiac exam reveals regular rate and Rhythm. Abdominal exam reveals normal bowel sounds, nontender, no organomegaly. Extremities are nonedematous and both femoral and pedal pulses are normal. [employer]: Patient was confused - Constitutional Vitals: Temp Pulse Resp BP Pulse Ox 98.0 F 77 16 122/68 92 06/02/21 08:29 06/02/21 09:16 06/02/21 08:29 06/02/21 09:16 06/02/21 08:29 General appearance: Present: no acute distress, well-nourished HEART Score - HEART Score Age: > 65 Risk factors: 1-2 risk factors Troponin: Troponin T 0.015 ng/mL (0.00-0.029) 05/31/21 18:06 Troponin: 1-3x normal limit - Critical Actions Critical Actions: 4-6 pts:12-16.6% risk of adverse cardiac event. Should be admitted Results - Labs CBC & Chem 7: 06/02/21 06:54 06/02/21 06:54 Labs: Laboratory Last Values WBC 4.9 K/mm3 (4.5-11.0) 06/02/21 06:54 RBC 3.70 M/mm3 (3.65-5.03) 06/02/21 06:54 Hgb 11.6 gm/dl (11.8-15.2) L 06/02/21 06:54 Hct 34.7 % (35.5-45.6) L 06/02/21 06:54 MCV 94 fl (84-94) 06/02/21 06:54 MCH 32 pg (28-32) 06/02/21 06:54 MCHC 34 % (32-34) 06/02/21 06:54 RDW 14.3 % (13.2-15.2) 06/02/21 06:54 Plt Count 217 K/mm3 (140-440) 06/02/21 06:54 Lymph % (Auto) Tire Spotter 06/02/21 06:54 [place] % (Auto) Tire Spotter 06/02/21 06:54 Eos % (Auto) T[employer] Spotter 06/02/21 06:54 Baso % (Auto) [employer] Spotter 06/02/21 06:54 Lymph # (Auto) [employer] Spotter 06/02/21 06:54 [place] # (Auto) T[employer] Spotter 06/02/21 06:54 Eos # (Auto) [employer] Spotter 06/02/21 06:54 Baso # (Auto) T[employer] Spotter 06/02/21 06:54 Seg Neutrophils % T[employer] Spotter 06/02/21 06:54 Seg Neutrophils # [employer] Spotter 06/02/21 06:54 PT 14.1 Sec. (12.2-14.9) 05/31/21 11:46 INR 1.04 (0.87-1.13) 05/31/21 11:46 APTT 27.5 Sec. (24.2-36.6) 05/31/21 11:46 Thrombin Time 18.1 Sec. (15.1-19.6) 05/31/21 11:46 Sodium 143 mmol/L (137-145) 06/02/21 06:54 Potassium 4.7 mmol/L (3.6-5.0) 06/02/21 06:54 Chloride 105.5 mmol/L (98-107) 06/02/21 06:54 Carbon Dioxide 29 mmol/L (22-30) 06/02/21 06:54 Anion Gap 13 mmol/L 06/02/21 06:54 BUN 36 mg/dL (9-20) H 06/02/21 06:54 Creatinine 2.1 mg/dL (0.8-1.3) H 06/02/21 06:54 Estimated GFR 37 ml/min 06/02/21 06:54 BUN/Creatinine Ratio 17 % 06/02/21 06:54 Glucose 115 mg/dL (75-100) H 06/02/21 06:54 POC Glucose 96 mg/dL (70-105) 06/02/21 08:07 Hemoglobin A1c 6.5 % (4-6) H 06/01/21 11:50 Uric Acid 7.7 mg/dL (3.5-7.6) H 06/01/21 11:50 Calcium 9.5 mg/dL (8.4-10.2) 06/02/21 06:54 Phosphorus 3.00 mg/dL (2.5-4.5) 06/02/21 06:54 Total Bilirubin 0.20 mg/dL (0.1-1.2) 06/01/21 11:50 AST 12 units/L (5-40) 06/01/21 11:50 ALT < 5 units/L (7-56) L 06/01/21 11:50 Alkaline Phosphatase 86 units/L (35-129) 06/01/21 11:50 Total Creatine Kinase 93 units/L (55-170) 06/01/21 11:50 CK-MB (CK-2) 2.1 ng/mL (0.0-4.0) 05/31/21 11:46 CK-MB (CK-2) Rel Index 2.6 (0-4) 05/31/21 11:46 Troponin T 0.015 ng/mL (0.00-0.029) 05/31/21 18:06 Total Protein 7.7 g/dL (6.3-8.2) 06/01/21 11:50 Albumin 4.2 g/dL (3.9-5) 06/01/21 11:50 Albumin/Globulin Ratio 1.2 % 06/01/21 11:50 Triglycerides 103 mg/dL (2-149) 05/31/21 11:46 Cholesterol 108 mg/dL (50-199) 05/31/21 11:46 LDL Cholesterol Direct 50 mg/dL (50-130) 05/31/21 11:46 HDL Cholesterol 43 mg/dL (40-59) 05/31/21 11:46 Cholesterol/HDL Ratio 2.51 % 05/31/21 11:46 Urine Color Yellow (Yellow) 05/31/21 Unknown Urine Turbidity Clear (Clear) 05/31/21 Unknown Urine pH 5.0 (5.0-7.0) 05/31/21 Unknown Ur Specific [place] 1.016 (1.003-1.030) 05/31/21 Unknown Urine Protein 100 mg/dl mg/dL (Negative) 05/31/21 Unknown Urine Glucose (UA) Neg mg/dL (Negative) 05/31/21 Unknown Urine Ketones Neg mg/dL (Negative) 05/31/21 Unknown Urine Blood Neg (Negative) 05/31/21 Unknown Urine Nitrite Neg (Negative) 05/31/21 Unknown Urine Bilirubin Neg (Negative) 05/31/21 Unknown Urine Urobilinogen < 2.0 mg/dL (<2.0) 05/31/21 Unknown Ur Leukocyte Esterase Neg (Negative) 05/31/21 Unknown Urine WBC (Auto) 1.0 /HPF (0.0-6.0) 05/31/21 Unknown Urine RBC (Auto) 2.0 /HPF (0.0-6.0) 05/31/21 Unknown U Epithel Cells (Auto) 1.0 /HPF (0-13.0) 05/31/21 Unknown Urine Mucus Few /HPF 05/31/21 Unknown Urine Sperm 1+ /HPF (CHOCOLATE PACKER) 05/31/21 Unknown Urine Opiates Screen Negative 05/31/21 Unknown Urine Methadone Screen Negative 05/31/21 Unknown Ur Barbiturates Screen Negative 05/31/21 Unknown Ur Phencyclidine Scrn Negative 05/31/21 Unknown Ur Amphetamines Screen Negative 05/31/21 Unknown U Benzodiazepines Scrn Negative 05/31/21 Unknown Urine Cocaine Screen Negative 05/31/21 Unknown U Marijuana (THC) Screen Negative 05/31/21 Unknown Drugs of Abuse Note Disclamer 05/31/21 Unknown Plasma/Serum Alcohol < 0.01 % (0-0.07) 05/31/21 11:46 [place]/IV: Voiding Method Toilet Active Medications - Current Medications Current Medications: Generic Name Dose Route Start Last Admin Trade Name Freq PRN Reason Stop Dose Admin Acetaminophen 650 mg 06/01/21 00:17 Acetaminophen 325 Mg Tab PO Q4H PRN Pain MILD(1-3)/Fever >100.5/ALVES Aspirin 325 mg 06/02/21 10:00 06/02/21 09:21 Aspirin Ec 325 Mg Tab PO 325 mg QDAY ROSE MARY Administration Atorvastatin Calcium 40 mg 06/02/21 22:00 Atorvastatin 40 Mg Tab PO QHS ROSE MARY Famotidine 20 mg 06/01/21 10:00 06/02/21 09:15 Famotidine 20 Mg/2 Ml Inj IV 20 mg QAM ROSE MARY Administration Hydromorphone HCl 0.5 mg 06/01/21 00:17 Hydromorphone 1 Mg/1 Ml Inj IV Q3H PRN Pain , Severe (7-10) Sodium Bicarbonate 150 meq/ 1,150 mls @ 125 mls/hr 06/01/21 10:30 06/01/21 11:42 Dextrose IV 125 mls/hr DIRECT ROSE MARY Administration Metoprolol Tartrate 50 mg 06/01/21 01:00 06/02/21 09:16 Metoprolol Tartrate 50 Mg Tab PO 50 mg BID@0800,1700 ROSE MARY Administration Nifedipine 30 mg 06/01/21 10:00 06/02/21 09:15 Nifedipine Xl 30 Mg Tab PO 30 mg QDAY ROSE MARY Administration Ondansetron HCl 4 mg 06/01/21 00:17 Ondansetron 4 Mg/2 Ml Inj IV Q8H PRN Nausea And Vomiting Oxycodone/Acetaminophen 1 tab 06/01/21 00:17 Oxycodone /Acetaminophen 5-325mg Tab PO Q6H PRN Pain, Moderate (4-6) Sodium Chloride 10 ml 06/01/21 10:00 06/02/21 09:17 Sodium Chloride 0.9% 10 Ml Flush Syringe IV 10 ml BID ROSE MARY Administration Sodium Chloride 10 ml 06/01/21 00:17 Sodium Chloride 0.9% 10 Ml Flush Syringe IV PRN PRN LINE FLUSH
[2021-06-02] MEDS: SODIUM BICARBONATE 150 MEQ in DEXTROSE 5% IN WATER 1,000 ML IV SCH (10:05)
--- NOTE | 2021-06-02 10:26 | Electrocardiograph Report ---
[facility] Test Date: 2021-06-02 Test Time: 08:01:52 Pat Name: KIMBERLY SEAMAN Department: Room: A487 1 Gender: M Tennis Professional: CARTER : 1935 Requested By: JADYN MERRITT Order Number: [id number] Reading MD: Toño Hernández Measurements Intervals Stuart Rate: 81 P: 70 WV: 188 QRS: -19 QRSD: 91 T: 55 QT: 374 QTc: 434 Interpretive Statements Sinus rhythm Compared to ECG 05/31/2021 12:15:32 No significant changes Electronically Signed On 06-02-2021 10:25:53 EDT by Toño eHrnández
--- NOTE | 2021-06-02 11:56 | Progress Note ---
Assessment and Plan (1) Vasovagal near syncope (2) TAMANNA (acute kidney injury) (3) Hyperkalemia (4) Elevated troponin (5) Hypertension (6) Facial nerve disorder, unspecified Cr is trending down, hyperkalemia resolved will switch sodium bicarb to NS renal US -ve for obstruction urine lytes ordered renally dose meeds strict I&O daily weights Aly Gaffney MD [phone] Subjective Date of service: 06/02/21 Principal diagnosis: TAMANNA Interval history: no overnight events Objective - Vital Signs Vital signs: Vital Signs - 12hr 06/02/21 06/02/21 06/02/21 00:00 00:27 03:00 Temperature 97.8 F Pulse Rate 68 80 Pulse Rate [ 59 L From Monitor] Respiratory 18 18 Rate Blood Pressure Blood Pressure 134/86 [Left] O2 Sat by Pulse 100 Oximetry 06/02/21 06/02/21 06/02/21 04:00 07:05 08:26 Temperature 97.8 F Pulse Rate 76 77 Pulse Rate [ From Monitor] Respiratory 16 Rate Blood Pressure Blood Pressure 123/55 [Left] O2 Sat by Pulse 100 Oximetry 06/02/21 06/02/21 08:29 09:16 Temperature 98.0 F Pulse Rate 61 77 Pulse Rate [ From Monitor] Respiratory 16 Rate Blood Pressure 122/68 Blood Pressure 122/68 [Left] O2 Sat by Pulse 92 Oximetry - Lab 06/02/21 06:54 06/02/21 06:54 Most recent lab results Calcium 9.5 mg/dL (8.4-10.2) 06/02/21 06:54 Phosphorus 3.00 mg/dL (2.5-4.5) 06/02/21 06:54 Medications & Allergies - Medications Allergies/Adverse Reactions: Allergies No Known Allergies Allergy (Unverified 10/21/17 17:06) Home Medications: Home Medications Medication Instructions Recorded Confirmed Last Taken Type Losartan [Cozaar] 25 mg PO QDAY 05/31/21 05/31/21 Unknown History Metoprolol [Lopressor TAB] 50 mg PO BID 05/31/21 05/31/21 Unknown History NIFEdipine [Nifedipine ER] 30 mg PO QDAY 05/31/21 05/31/21 Unknown History Active Medications: Generic Name Dose Route Start Last Admin Trade Name Freq PRN Reason Stop Dose Admin Acetaminophen 650 mg 06/01/21 00:17 Acetaminophen 325 Mg Tab PO Q4H PRN Pain MILD(1-3)/Fever >100.5/ALVES Aspirin 325 mg 06/02/21 10:00 06/02/21 09:21 Aspirin Ec 325 Mg Tab PO 325 mg QDAY ROSE MARY Administration Atorvastatin Calcium 40 mg 06/02/21 22:00 Atorvastatin 40 Mg Tab PO QHS ROSE MARY Famotidine 20 mg 06/01/21 10:00 06/02/21 09:15 Famotidine 20 Mg/2 Ml Inj IV 20 mg QAM ROSE MARY Administration Hydromorphone HCl 0.5 mg 06/01/21 00:17 Hydromorphone 1 Mg/1 Ml Inj IV Q3H PRN Pain , Severe (7-10) Metoprolol Tartrate 50 mg 06/01/21 01:00 06/02/21 09:16 Metoprolol Tartrate 50 Mg Tab PO 50 mg BID@0800,1700 ROSE MARY Administration Nifedipine 30 mg 06/01/21 10:00 06/02/21 09:15 Nifedipine Xl 30 Mg Tab PO 30 mg QDAY ROSE MARY Administration Ondansetron HCl 4 mg 06/01/21 00:17 Ondansetron 4 Mg/2 Ml Inj IV Q8H PRN Nausea And Vomiting Oxycodone/Acetaminophen 1 tab 06/01/21 00:17 Oxycodone /Acetaminophen 5-325mg Tab PO Q6H PRN Pain, Moderate (4-6) Sodium Chloride 10 ml 06/01/21 10:00 06/02/21 09:17 Sodium Chloride 0.9% 10 Ml Flush Syringe IV 10 ml BID ROSE MARY Administration Sodium Chloride 10 ml 06/01/21 00:17 Sodium Chloride 0.9% 10 Ml Flush Syringe IV PRN PRN LINE FLUSH
[2021-06-02] MEDS: SODIUM CHLORIDE 0.9% 1000 ML 1,000 ML IV SCH (13:21)
--- NOTE | 2021-06-02 13:24 | Progress Note ---
Assessment and Plan Assessment and Plan Advance Directives: Yes (Full code) VTE prophylaxis?: Chemical Plan of care discussed with patient/family: Yes - Patient Problems #episode of near syncope associated with weakness for over 1 hour as per pt. 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 # Underlying dementia -check for tsh,b12,Folate -consider treatment -neurology follow up # DVT prophylaxis -On heparin and GI prophylaxis will follow as needed Subjective Date of service: 06/02/21 Principal diagnosis: TAMANNA Interval history: doing well no compliant denied dizziness ? orthostatic changes MRI and MRA official report is pending no sign of acute event US carotid is pending as well as echo Objective - Vital Sign Vital Signs - 12hr 06/02/21 06/02/21 06/02/21 03:00 04:00 07:05 Temperature 97.8 F Pulse Rate 76 77 Pulse Rate [ 59 L From Monitor] Respiratory 18 16 Rate Blood Pressure Blood Pressure 123/55 [Left] O2 Sat by Pulse 100 Oximetry 06/02/21 06/02/21 06/02/21 08:26 08:29 09:16 Temperature 98.0 F Pulse Rate 61 77 Pulse Rate [ From Monitor] Respiratory 16 Rate Blood Pressure 122/68 Blood Pressure 122/68 [Left] O2 Sat by Pulse 100 92 Oximetry 06/02/21 11:39 Temperature 98.0 F Pulse Rate 63 Pulse Rate [ From Monitor] Respiratory 16 Rate Blood Pressure 127/63 Blood Pressure [Left] O2 Sat by Pulse 98 Oximetry - General Apperance Constitutional: comfortable - EENT EENT: PERRL, mucous membranes moist - Respiratory Respiratory: chest non-tender, lungs clear, rhonchi - Cardiovascular Cardiovascular: regular rate, normal S1, normal S2 Extremities: no peripheral edema bilat, no clubbing, cyanosis - Gastrointestinal Gastrointestinal: normoactive bowel sounds - Integumentary Integumentary: normal - Neurologic Cranial nerve examination: PERRL, EOMI, intact (left facial tic ) - Laboratory Findings CBC and BMP: 06/02/21 06:54 06/02/21 06:54 Abnormal Lab Findings: Abnormal Labs 05/31/21 05/31/21 06/01/21 11:46 11:46 07:46 Hgb Hct MCV 96 H [place] % (Auto) Lymph # (Auto) 1.1 L Seg Neutrophils % 79.2 H Potassium 6.0 H Carbon Dioxide 20 L BUN 57 H Creatinine 2.8 H Glucose 129 H POC Glucose 64 L Hemoglobin A1c Uric Acid ALT 5 L Troponin T 0.032 H Total Protein 9.4 H 06/01/21 06/01/21 06/01/21 08:51 11:50 11:50 Hgb Hct MCV [place] % (Auto) 8.4 H Lymph # (Auto) 0.8 L Seg Neutrophils % 72.5 H Potassium 5.8 H Carbon Dioxide BUN 45 H Creatinine 1.9 H Glucose 102 H POC Glucose 63 L Hemoglobin A1c Uric Acid ALT < 5 L Troponin T Total Protein 06/01/21 06/01/21 06/02/21 11:50 11:50 06:54 Hgb 11.6 L Hct 34.7 L MCV Benson % (Auto) Lymph # (Auto) Seg Neutrophils % Potassium Carbon Dioxide BUN Creatinine Glucose POC Glucose Hemoglobin A1c 6.5 H Uric Acid 7.7 H ALT Troponin T Total Protein 06/02/21 06/02/21 06:54 11:38 Hgb Hct MCV [place] % (Auto) Lymph # (Auto) Seg Neutrophils % Potassium Carbon Dioxide BUN 36 H Creatinine 2.1 H Glucose 115 H POC Glucose 116 H Hemoglobin A1c Uric Acid ALT Troponin T Total Protein
[2021-06-02 13:58] LABS: Bilirubin,Urine NEG (Negative); Blood,Urine NEG (Negative); Color,Urine Yellow (Yellow); Urobilinogen,Urine < 2.0 mg/dL (<2.0)
[2021-06-02 14:16] LABS: Creatinine,Urine 169.2 mg/dL (0.1-20.0)
[2021-06-02 14:21] LABS: Creatinine,Urine 170.1 mg/dL (0.1-20.0); Protein/Creatinine Ratio,Urine 0.31
--- NOTE | 2021-06-02 16:14 | Magnetic Resonance Report ---
MRA HEAD WITHOUT CONTRAST HISTORY: Cerebrovascular accident. COMPARISON: none TECHNIQUE: Routine MRA of the head performed. 3-D/MIP reformats postprocessed. CONTRAST: none FINDINGS: This is a technically limited examination. Intracranial vertebral arteries: Right vertebral artery is dominant. Both vertebral arteries contribu te to the basilar artery origin. Basilar artery: Basilar artery has an unremarkable appearance. Posterior cerebral arteries: P1 and proximal P2 segments of the posterior cerebral arteries have an u nremarkable appearance. Distal P2 segments and P3 and P4 segments of the posterior cerebral arteries are not visualized on this examination. Consider CTA head for further evaluation if clinically warran roberto. Intracranial internal carotid arteries: Contour irregularities are seen at the junction between the h orizontal and vertical petrous segments of the internal carotid arteries. This may reflect artifact. Stenoses in this location cannot be excluded. There appears to be a moderate stenosis along the cours e of the cavernous segment of the R ICA. No additional abnormality. 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 On source images the A2 segments and close of branches of the anterior cerebral arteries have an unremarkable appearance. Flow gap on 3-D reconstructions at the junction of the A1 and A2 seg ments is likely artifactual. Middle cerebral arteries: Normal and symmetrical M1 segments are demonstrated bilaterally. No abnorma lities are seen on evaluation of the insular or opercular branches of the middle cerebral arteries. IMPRESSION: 1. Technically limited study. 2. Poor visualization of the posterior cerebral arteries as described above. If clinically warranted further evaluation with CTA head could be considered. 3. Question stenoses versus artifact at the junction of the vertical and horizontal petrous portions of the internal carotid arteries bilaterally and along the course of the cavernous segment of the rig ht internal carotid artery. If clinically warranted further evaluation with CTA head could be conside red. Signer Name: Joey Lamar MD Signed: 06/02/2021 4:10 PM Workstation Name: [id number]
--- NOTE | 2021-06-02 16:53 | Magnetic Resonance Report ---
MR brain wo con INDICATION / CLINICAL INFORMATION: 85 years Male; CVA. TECHNIQUE: Multiplanar, multisequence MR images of the brain were obtained. COMPARISON: None available. FINDINGS: BRAIN / INTRACRANIAL CONTENTS: The motion degrades the image quality despite repeat imaging. 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 Mild findings are noted within the kimberlee. The diffusion imaging reveals no evidence of acute infa rction. There is mild to moderate cerebral atrophy with associated mild prominence of the ventricular system. There is noted incidental prominent perivascular spaces along the basal ganglia bilaterally. No extr a-axial fluid collections or significant mass effect is identified. CRANIOCERVICAL JUNCTION: No significant abnormality. VASCULAR FLOW-VOIDS: No significant abnormality. ORBITS: No significant abnormality of visualized orbits. SINUSES / MASTOIDS: There is complete heterogeneous opacification of the right maxillary sinus at. Mi lder scattered inflammatory changes are noted within the ethmoid air cells. There is also fluid signa l along the inferior left mastoid air cells. ADDITIONAL FINDINGS: None. IMPRESSION: 1. There is extensive microvascular angiopathy as detailed above without evidence of acute territoria l infarct. 2. There is sinus inflammatory disease, most notably within the right maxillary sinus as described. T here is also mild fluid signal within the left mastoid air cells. Signer Name: Steve Chaves MD Signed: 06/02/2021 4:49 PM Workstation Name: [id number]
[2021-06-03] MEDS: SODIUM CHLORIDE 0.9% 1000 ML 1,000 ML IV SCH ×2 (05:43→09:51)
[2021-06-03 09:09] LABS: Calcium 9.2 mg/dL (8.4-10.2)
[2021-06-03 09:21] LABS: Basophils % (Auto) 0.4 % (0.0-1.8); Eosinophils # (Auto) 0.2 K/mm3 (0.0-0.4); Eosinophils % (Auto) 3.3 % (0.0-4.3); Hematocrit 32.1 % (35.5-45.6); Hemoglobin 10.6 gm/dl (11.8-15.2); Lymphocytes # (Auto) 1.4 K/mm3 (1.2-5.4); Lymphocytes % (Auto) 25.7 % (13.4-35.0); Mean Corpuscular HGB Conc 33 % (32-34); Mean Corpuscular Volume 94 fl (84-94); Monocytes # (Auto) 0.5 K/mm3 (0.0-0.8); Monocytes % (Auto) 8.7 % (0.0-7.3); Platelet Count 225 K/mm3 (140-440); Red Cell Distribution Width 13.8 % (13.2-15.2)
[2021-06-03] MEDS: ASPIRIN EC 325 MG TAB PO SCH (09:50)
[2021-06-03] MEDS: METOPROLOL TARTRATE 50 MG TAB PO SCH ×2 (09:50→18:16)
[2021-06-03] MEDS: FAMOTIDINE 20 MG/2 ML INJ IV SCH (09:50)
[2021-06-03] MEDS: NIFEdipine XL 30 MG TAB PO SCH (09:50)
--- NOTE | 2021-06-03 11:49 | Progress Note ---
Assessment and Plan Assessment and plan: (1) Vasovagal near syncope Current Visit: Yes Status: Acute Plan to address problem: IV fluids Carotid duplex scan Neurology consult Echocardiogram (2) TAMANNA (acute kidney injury) Current Visit: Yes Status: Acute Plan to address problem: Possible ATN Nephrology consult IV fluids (3) Hyperkalemia Current Visit: Yes Status: Acute Plan to address problem: Treated in the emergency room Recheck potassium level (4) Elevated troponin Current Visit: Yes Status: Acute Plan to address problem: Secondary to elevated creatinine NSTEMI 2 (5) Hypertension Current Visit: Yes Status: Chronic Qualifiers: Hypertension type: primary hypertension Qualified Code(s): I10 - Essential (primary) hypertension Plan to address problem: Continue antihypertensives (6) Facial nerve disorder, unspecified Current Visit: Yes Status: Acute Plan to address problem: Transient (7) DVT prophylaxis Current Visit: Yes Status: Acute Plan to address problem: On heparin and GI prophylaxis 06/01/2021 -Neurology consulted for syncopal episode and echo, carotid Doppler pending. -Patient has hyperkalemia and I ordered Kayexalate, neurology consulted for TAMANNA and recommendations appreciated. Patient is on IV fluid. -Troponin trended down to normal 06/02/2021 -Patient was seen by neurology and recommend to get MRI. CT head, carotid Doppler, echo were unremarkable. -MRI is pending -Renal ultrasound was done back nephrology and showed left nephrectomy, patient's creatinine is still elevated, continue with IV fluids. -Hyperkalemia resolved. -PT OT evaluation 06/03/2021 Patient with TAMANNA, improving. Creatinine 1.7 today from 2.1 yesterday. Continue current as per Nephrology Neurology and Nephrology following History Interval history: Creatinine improving patient cannot give history Hospitalist Physical - Physical exam Narrative exam: Not in cardiopulmonary distress. The patient appeared well nourished and normally developed. Vital signs as documented. Head exam is unremarkable. No scleral icterus . Neck is without jugular venous distension, thyromegaly, or carotid bruits. Lungs are clear to auscultation. Cardiac exam reveals regular rate and Rhythm. Abdominal exam reveals normal bowel sounds, nontender, no organomegaly. Extremities are nonedematous and both femoral and pedal pulses are normal. 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 Should be admitted Results - Labs CBC & Chem 7: 06/03/21 08:23 06/03/21 08:23 Labs: Laboratory Last Values WBC 5.4 K/mm3 (4.5-11.0) 06/03/21 08:23 RBC 3.40 M/mm3 (3.65-5.03) L 06/03/21 08:23 Hgb 10.6 gm/dl (11.8-15.2) L 06/03/21 08:23 Hct 32.1 % (35.5-45.6) L 06/03/21 08:23 MCV 94 fl (84-94) 06/03/21 08:23 MCH 31 pg (28-32) 06/03/21 08:23 MCHC 33 % (32-34) 06/03/21 08:23 RDW 13.8 % (13.2-15.2) 06/03/21 08:23 Plt Count 225 K/mm3 (140-440) 06/03/21 08:23 Lymph % (Auto) 25.7 % (13.4-35.0) 06/03/21 08:23 Trigg % (Auto) 8.7 % (0.0-7.3) H 06/03/21 08:23 Eos % (Auto) 3.3 % (0.0-4.3) 06/03/21 08:23 Baso % (Auto) 0.4 % (0.0-1.8) 06/03/21 08:23 Lymph # (Auto) 1.4 K/mm3 (1.2-5.4) 06/03/21 08:23 Trigg # (Auto) 0.5 K/mm3 (0.0-0.8) 06/03/21 08:23 Eos # (Auto) 0.2 K/mm3 (0.0-0.4) 06/03/21 08:23 Baso # (Auto) 0.0 K/mm3 (0.0-0.1) 06/03/21 08:23 Seg Neutrophils % 61.9 % (40.0-70.0) 06/03/21 08:23 Seg Neutrophils # 3.3 K/mm3 (1.8-7.7) 06/03/21 08:23 PT 14.1 Sec. (12.2-14.9) 05/31/21 11:46 INR 1.04 (0.87-1.13) 05/31/21 11:46 APTT 27.5 Sec. (24.2-36.6) 05/31/21 11:46 Thrombin Time 18.1 Sec. (15.1-19.6) 05/31/21 11:46 Sodium 143 mmol/L (137-145) 06/03/21 08:23 Potassium 4.0 mmol/L (3.6-5.0) 06/03/21 08:23 Chloride 103.4 mmol/L (98-107) 06/03/21 08:23 Carbon Dioxide 27 mmol/L (22-30) 06/03/21 08:23 Anion Gap 17 mmol/L 06/03/21 08:23 BUN 25 mg/dL (9-20) H 06/03/21 08:23 Creatinine 1.7 mg/dL (0.8-1.3) H 06/03/21 08:23 Estimated GFR 47 ml/min 06/03/21 08:23 BUN/Creatinine Ratio 15 % 06/03/21 08:23 Glucose 89 mg/dL (75-100) 06/03/21 08:23 POC Glucose 79 mg/dL (70-105) 06/03/21 07:27 Hemoglobin A1c 6.5 % (4-6) H 06/01/21 11:50 Uric Acid 7.7 mg/dL (3.5-7.6) H 06/01/21 11:50 Calcium 9.2 mg/dL (8.4-10.2) 06/03/21 08:23 Phosphorus 2.80 mg/dL (2.5-4.5) 06/03/21 08:23 Total Bilirubin 0.20 mg/dL (0.1-1.2) 06/01/21 11:50 AST 12 units/L (5-40) 06/01/21 11:50 ALT < 5 units/L (7-56) L 06/01/21 11:50 Alkaline Phosphatase 86 units/L (35-129) 06/01/21 11:50 Total Creatine Kinase 93 units/L (55-170) 06/01/21 11:50 CK-MB (CK-2) 2.1 ng/mL (0.0-4.0) 05/31/21 11:46 CK-MB (CK-2) Rel Index 2.6 (0-4) 05/31/21 11:46 Troponin T 0.015 ng/mL (0.00-0.029) 05/31/21 18:06 Total Protein 7.7 g/dL (6.3-8.2) 06/01/21 11:50 Albumin 4.2 g/dL (3.9-5) 06/01/21 11:50 Albumin/Globulin Ratio 1.2 % 06/01/21 11:50 Triglycerides 103 mg/dL (2-149) 05/31/21 11:46 Cholesterol 108 mg/dL (50-199) 05/31/21 11:46 LDL Cholesterol Direct 50 mg/dL (50-130) 05/31/21 11:46 HDL Cholesterol 43 mg/dL (40-59) 05/31/21 11:46 Cholesterol/HDL Ratio 2.51 % 05/31/21 11:46 Urine Color Yellow (Yellow) 06/02/21 Unknown Urine Turbidity Clear (Clear) 06/02/21 Unknown Urine pH 6.0 (5.0-7.0) 06/02/21 Unknown Ur Specific [place] 1.015 (1.003-1.030) 06/02/21 Unknown Urine Protein 100 mg/dl mg/dL (Negative) 06/02/21 Unknown Urine Glucose (UA) Neg mg/dL (Negative) 06/02/21 Unknown Urine Ketones Neg mg/dL (Negative) 06/02/21 Unknown Urine Blood Neg (Negative) 06/02/21 Unknown Urine Nitrite Neg (Negative) 06/02/21 Unknown Urine Bilirubin Neg (Negative) 06/02/21 Unknown Urine Urobilinogen < 2.0 mg/dL (<2.0) 06/02/21 Unknown Ur Leukocyte Esterase Neg (Negative) 06/02/21 Unknown Urine WBC (Auto) 1.0 /HPF (0.0-6.0) 06/02/21 Unknown Urine RBC (Auto) 1.0 /HPF (0.0-6.0) 06/02/21 Unknown U Epithel Cells (Auto) 1.0 /HPF (0-13.0) 06/02/21 Unknown Urine Mucus Few /HPF 05/31/21 Unknown Urine Sperm 1+ /HPF (MANAGER TRANSFUSION) 05/31/21 Unknown Urine Creatinine 169.2 mg/dL (0.1-20.0) H 06/02/21 Unknown Urine Creatinine 170.1 mg/dL (0.1-20.0) H 06/02/21 Unknown Protein/Creatinin Ratio 0.31 06/02/21 Unknown Urine Sodium 80 mmol/L 06/02/21 Unknown Urine Urea Nitrogen 845 06/02/21 Unknown Urine Total Protein 52 mg/dL (5-11.8) H 06/02/21 Unknown Urine Opiates Screen Negative 05/31/21 Unknown Urine Methadone Screen Negative 05/31/21 Unknown Ur Barbiturates Screen Negative 05/31/21 Unknown Ur Phencyclidine Scrn Negative 05/31/21 Unknown Ur Amphetamines Screen Negative 05/31/21 Unknown U Benzodiazepines Scrn Negative 05/31/21 Unknown Urine Cocaine Screen Negative 05/31/21 Unknown U Marijuana (THC) Screen Negative 05/31/21 Unknown Drugs of Abuse Note Disclamer 05/31/21 Unknown Plasma/Serum Alcohol < 0.01 % (0-0.07) 05/31/21 11:46 Lockhart/IV: Voiding Method Urinal Active Medications - Current Medications Current Medications: Generic Name Dose Route Start Last Admin Trade Name Freq PRN Reason Stop Dose Admin Acetaminophen 650 mg 06/01/21 00:17 Acetaminophen 325 Mg Tab PO Q4H PRN Pain MILD(1-3)/Fever >100.5/ALVES Aspirin 325 mg 06/02/21 10:00 06/03/21 09:50 Aspirin Ec 325 Mg Tab PO 325 mg QDAY ROSE MARY Administration Atorvastatin Calcium 40 mg 06/02/21 22:00 06/02/21 21:42 Atorvastatin 40 Mg Tab PO 40 mg QHS ROSE MARY Administration Famotidine 20 mg 06/01/21 10:00 06/03/21 09:50 Famotidine 20 Mg/2 Ml Inj IV 20 mg QAM ROSE MARY Administration Hydromorphone HCl 0.5 mg 06/01/21 00:17 Hydromorphone 1 Mg/1 Ml Inj IV Q3H PRN Pain , Severe (7-10) Sodium Chloride 1,000 mls @ 75 mls/hr 06/02/21 12:00 06/03/21 09:51 Nacl 0.9% 1000 Ml IV 75 mls/hr DIRECT ROSE MARY Administration Metoprolol Tartrate 50 mg 06/01/21 01:00 06/03/21 09:50 Metoprolol Tartrate 50 Mg Tab PO 50 mg BID@0800,1700 ROSE MARY Administration Nifedipine 30 mg 06/01/21 10:00 06/03/21 09:50 Nifedipine Xl 30 Mg Tab PO 30 mg QDAY ROSE MARY Administration Ondansetron HCl 4 mg 06/01/21 00:17 Ondansetron 4 Mg/2 Ml Inj IV Q8H PRN Nausea And Vomiting Oxycodone/Acetaminophen 1 tab 06/01/21 00:17 Oxycodone /Acetaminophen 5-325mg Tab PO Q6H PRN Pain, Moderate (4-6) Sodium Chloride 10 ml 06/01/21 10:00 06/03/21 09:51 Sodium Chloride 0.9% 10 Ml Flush Syringe IV 10 ml BID ROSE MARY Administration Sodium Chloride 10 ml 06/01/21 00:17 Sodium Chloride 0.9% 10 Ml Flush Syringe IV PRN PRN LINE FLUSH
--- NOTE | 2021-06-03 11:56 | Progress Note ---
Assessment and Plan Assessment Vasovagal near syncope TAMANNA possibly 2/2 prerenal/ATN, ? underlying CKD, hx of left nephrectomy Hyperkalemia Elevated troponin Hypertension Facial nerve disorder, unspecified Plan: Renal function reviewed, SCr level was 1.7 today, yesterday's SCr level was 2.1 Most recent SCr level in [facility] prior to this admission was 1.3 on 09/11/19 On 0.9% NS infusion at 75 ml/hr Holding home losartan No significant proteinuria noted Renal US negative for obstruction, left nephrectomy Renally dose meeds Strict I&O Intake= 2246 ml Output= 1000 ml (Net= 1246 ml) Renal plan reviewed by Dr Santana Subjective Date of service: 06/03/21 Principal diagnosis: TAMANNA Interval history: Pt seen in bed, awake, oriented to self, no acute distress Objective - Vital Signs Vital signs: Vital Signs - 12hr 06/03/21 06/03/21 06/03/21 00:00 01:17 03:00 Temperature 98.6 F Pulse Rate 75 68 Pulse Rate [ 69 From Monitor] Respiratory 16 18 Rate Blood Pressure 127/68 Blood Pressure [Left] O2 Sat by Pulse 94 100 Oximetry 06/03/21 06/03/21 06/03/21 04:39 07:43 08:43 Temperature 97.9 F 98.3 F Pulse Rate 70 42 L 102 H Pulse Rate [ From Monitor] Respiratory 18 20 Rate Blood Pressure 149/73 143/65 Blood Pressure [Left] O2 Sat by Pulse 92 92 Oximetry 06/03/21 09:54 Temperature 98.2 F Pulse Rate 77 Pulse Rate [ From Monitor] Respiratory 20 Rate Blood Pressure Blood Pressure 128/64 [Left] O2 Sat by Pulse 96 Oximetry - General Appearance General appearance: other (awake) EENT: ATNC Neck: no JVD Respiratory: Present: Decreased Breath Sounds Cardiology: regular, S1S2 Gastrointestinal: normoactive bowel sounds Integumentary: warm and dry Neurologic: other (awake, oriented to self) Musculoskeletal: other (no edema to BLE) Psychiatric: cooperative - Lab 06/03/21 08:23 06/03/21 08:23 Most recent lab results Calcium 9.2 mg/dL (8.4-10.2) 06/03/21 08:23 Phosphorus 2.80 mg/dL (2.5-4.5) 06/03/21 08:23 Urine Creatinine 169.2 mg/dL (0.1-20.0) H 06/02/21 Unknown Urine Creatinine 170.1 mg/dL (0.1-20.0) H 06/02/21 Unknown Urine Sodium 80 mmol/L 06/02/21 Unknown Urine Total Protein 52 mg/dL (5-11.8) H 06/02/21 Unknown Medications & Allergies - Medications Allergies/Adverse Reactions: Allergies No Known Allergies Allergy (Unverified 10/21/17 17:06) Home Medications: Home Medications Medication Instructions Recorded Confirmed Last Taken Type Losartan [Cozaar] 25 mg PO QDAY 05/31/21 05/31/21 Unknown History Metoprolol [Lopressor TAB] 50 mg PO BID 05/31/21 05/31/21 Unknown History NIFEdipine [Nifedipine ER] 30 mg PO QDAY 05/31/21 05/31/21 Unknown History Active Medications: Generic Name Dose Route Start Last Admin Trade Name Freq PRN Reason Stop Dose Admin Acetaminophen 650 mg 06/01/21 00:17 Acetaminophen 325 Mg Tab PO Q4H PRN Pain MILD(1-3)/Fever >100.5/ALVES Aspirin 325 mg 06/02/21 10:00 06/03/21 09:50 Aspirin Ec 325 Mg Tab PO 325 mg QDAY ROSE MARY Administration Atorvastatin Calcium 40 mg 06/02/21 22:00 06/02/21 21:42 Atorvastatin 40 Mg Tab PO 40 mg QHS ROSE MARY Administration Famotidine 20 mg 06/01/21 10:00 06/03/21 09:50 Famotidine 20 Mg/2 Ml Inj IV 20 mg QAM ROSE MARY Administration Hydromorphone HCl 0.5 mg 06/01/21 00:17 Hydromorphone 1 Mg/1 Ml Inj IV Q3H PRN Pain , Severe (7-10) Sodium Chloride 1,000 mls @ 75 mls/hr 06/02/21 12:00 06/03/21 09:51 Nacl 0.9% 1000 Ml IV 75 mls/hr DIRECT ROSE MARY Administration Metoprolol Tartrate 50 mg 06/01/21 01:00 06/03/21 09:50 Metoprolol Tartrate 50 Mg Tab PO 50 mg BID@0800,1700 ROSE MARY Administration Nifedipine 30 mg 06/01/21 10:00 06/03/21 09:50 Nifedipine Xl 30 Mg Tab PO 30 mg QDAY ROSE MARY Administration Ondansetron HCl 4 mg 06/01/21 00:17 Ondansetron 4 Mg/2 Ml Inj IV Q8H PRN Nausea And Vomiting Oxycodone/Acetaminophen 1 tab 06/01/21 00:17 Oxycodone /Acetaminophen 5-325mg Tab PO Q6H PRN Pain, Moderate (4-6) Sodium Chloride 10 ml 06/01/21 10:00 06/03/21 09:51 Sodium Chloride 0.9% 10 Ml Flush Syringe IV 10 ml BID ROSE MARY Administration Sodium Chloride 10 ml 06/01/21 00:17 Sodium Chloride 0.9% 10 Ml Flush Syringe IV PRN PRN LINE FLUSH
--- NOTE | 2021-06-03 13:34 | Progress Note ---
Assessment and Plan Assessment and Plan Advance Directives: Yes (Full code) VTE prophylaxis?: Chemical Plan of care discussed with patient/family: Yes - Patient Problems #episode of near syncope associated with weakness for over 1 hour as per pt. 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 # Underlying dementia -check for TSH,B12,Folate wnl -consider treatment -neurology follow up # DVT prophylaxis -On heparin and GI prophylaxis PLAN 1- ASA 325 mg daily Plus Lipitor 40 mg daily 2- Review carotid US when done 3- neurology follow Up for dementia and facial tics as well as IC vscualr disease . will follow as needed Subjective Date of service: 06/03/21 Principal diagnosis: TAMANNA Interval history: doing well no compliant denied dizziness ? orthostatic changes not done MRI no acute event possible sinus problem MRA brain Intracranial is remarkable for tortous cavernous segment of ICA , as well as poor visualization of the vertebral a. P2-3-4 segments US carotid is pending Echo is remarkable for EF#60-65% Objective - Vital Sign Vital Signs - 12hr 06/03/21 06/03/21 06/03/21 03:00 04:39 07:43 Temperature 97.9 F Pulse Rate 70 42 L Pulse Rate [ 69 From Monitor] Respiratory 18 18 Rate Blood Pressure 149/73 Blood Pressure [Left] O2 Sat by Pulse 100 92 Oximetry 06/03/21 06/03/21 08:43 09:54 Temperature 98.3 F 98.2 F Pulse Rate 102 H 77 Pulse Rate [ From Monitor] Respiratory 20 20 Rate Blood Pressure 143/65 Blood Pressure 128/64 [Left] O2 Sat by Pulse 92 96 Oximetry - General Apperance Constitutional: comfortable - EENT EENT: PERRL, mucous membranes moist - Respiratory Respiratory: chest non-tender, lungs clear, rhonchi - Cardiovascular Cardiovascular: regular rate, normal S1, normal S2 Extremities: no peripheral edema bilat, no clubbing, cyanosis - Gastrointestinal Gastrointestinal: normoactive bowel sounds - Integumentary Integumentary: normal - Neurologic Cranial nerve examination: PERRL, EOMI, VFF, intact (left facial tics unchanged) Detailed motor examination: other (no clear focal weakness ) - Laboratory Findings CBC and BMP: 06/03/21 08:23 06/03/21 08:23 Abnormal Lab Findings: Abnormal Labs 05/31/21 05/31/21 06/01/21 11:46 11:46 07:46 RBC Hgb Hct MCV 96 H [place] % (Auto) Lymph # (Auto) 1.1 L Seg Neutrophils % 79.2 H Potassium 6.0 H Carbon Dioxide 20 L BUN 57 H Creatinine 2.8 H Glucose 129 H POC Glucose 64 L Hemoglobin A1c Uric Acid ALT 5 L Troponin T 0.032 H Total Protein 9.4 H Urine Creatinine Urine Total Protein 06/01/21 06/01/21 06/01/21 08:51 11:50 11:50 RBC Hgb Hct MCV [place] % (Auto) 8.4 H Lymph # (Auto) 0.8 L Seg Neutrophils % 72.5 H Potassium 5.8 H Carbon Dioxide BUN 45 H Creatinine 1.9 H Glucose 102 H POC Glucose 63 L Hemoglobin A1c Uric Acid ALT < 5 L Troponin T Total Protein Urine Creatinine Urine Total Protein 06/01/21 06/01/21 06/02/21 11:50 11:50 06:54 RBC Hgb 11.6 L Hct 34.7 L MCV [place] % (Auto) Lymph # (Auto) Seg Neutrophils % Potassium Carbon Dioxide BUN Creatinine Glucose POC Glucose Hemoglobin A1c 6.5 H Uric Acid 7.7 H ALT Troponin T Total Protein Urine Creatinine Urine Total Protein 06/02/21 06/02/21 06/02/21 06:54 11:38 Unknown RBC Hgb Hct MCV [place] % (Auto) Lymph # (Auto) Seg Neutrophils % Potassium Carbon Dioxide BUN 36 H Creatinine 2.1 H Glucose 115 H POC Glucose 116 H Hemoglobin A1c Uric Acid ALT Troponin T Total Protein Urine Creatinine 169.2 H Urine Total Protein 06/02/21 06/03/21 06/03/21 Unknown 08:23 08:23 RBC 3.40 L Hgb 10.6 L Hct 32.1 L MCV [place] % (Auto) 8.7 H Lymph # (Auto) Seg Neutrophils % Potassium Carbon Dioxide BUN 25 H Creatinine 1.7 H Glucose POC Glucose Hemoglobin A1c Uric Acid ALT Troponin T Total Protein Urine Creatinine 170.1 H Urine Total Protein 52 H
[2021-06-04 07:52] LABS: Basophils % (Auto) 0.6 % (0.0-1.8); Eosinophils # (Auto) 0.2 K/mm3 (0.0-0.4); Eosinophils % (Auto) 3.5 % (0.0-4.3); Hematocrit 27.9 % (35.5-45.6); Hemoglobin 9.5 gm/dl (11.8-15.2); Lymphocytes # (Auto) 1.1 K/mm3 (1.2-5.4); Lymphocytes % (Auto) 23.9 % (13.4-35.0); Mean Corpuscular HGB Conc 34 % (32-34); Mean Corpuscular Volume 94 fl (84-94); Monocytes # (Auto) 0.5 K/mm3 (0.0-0.8); Monocytes % (Auto) 11.6 % (0.0-7.3); Platelet Count 192 K/mm3 (140-440); Red Blood Count 2.97 M/mm3 (3.65-5.03); Red Cell Distribution Width 13.9 % (13.2-15.2)
[2021-06-04 08:12] LABS: BUN/Creatinine Ratio 12; Blood Urea Nitrogen 15 mg/dL (9-20); Calcium 8.8 mg/dL (8.4-10.2); Hemolysis Index 6
--- NOTE | 2021-06-04 08:31 | Progress Note ---
Assessment and Plan Assessment Vasovagal near syncope TAMANNA possibly 2/2 prerenal/ATN, ? underlying CKD, hx of left nephrectomy Hyperkalemia Elevated troponin Hypertension Facial nerve disorder, unspecified Plan: Renal function reviewed, SCr level was 1.3 today, yesterday's SCr level was 1.7 Most recent SCr level in [facility] prior to this admission was 1.3 on 09/11/19 On 0.9% NS infusion at 75 ml/hr Holding home losartan No significant proteinuria noted Renal US negative for obstruction, left nephrectomy Renally dose meeds Strict I&O Renal plan reviewed by Dr Santana Subjective Date of service: 06/04/21 Principal diagnosis: TAMANNA Interval history: Pt seen in bed, awake, more alert today, denies shortness of breath, no acute distress Objective - Vital Signs Vital signs: Vital Signs - 12hr 06/03/21 06/04/21 06/04/21 20:38 00:00 01:09 Temperature 98.8 F Pulse Rate 68 68 Pulse Rate [ 67 From Monitor] Respiratory 18 18 Rate Blood Pressure Blood Pressure 138/64 [Left] O2 Sat by Pulse 96 91 Oximetry 06/04/21 05:19 Temperature 99.4 F Pulse Rate 73 Pulse Rate [ From Monitor] Respiratory 18 Rate Blood Pressure 140/60 Blood Pressure [Left] O2 Sat by Pulse 94 Oximetry - General Appearance General appearance: other (awake) EENT: ATNC Neck: no JVD Respiratory: Present: Clear to Ascultation Cardiology: regular, S1S2 Gastrointestinal: normoactive bowel sounds, no tenderness Integumentary: warm and dry Neurologic: other (awake, oriented to person, place, but not year, follows simple commands) Musculoskeletal: other (trace edema to BLE) Psychiatric: cooperative - Lab 06/04/21 06:36 06/04/21 06:36 Most recent lab results Calcium 8.8 mg/dL (8.4-10.2) 06/04/21 06:36 Phosphorus 2.60 mg/dL (2.5-4.5) 06/04/21 06:36 Urine Creatinine 169.2 mg/dL (0.1-20.0) H 06/02/21 Unknown Urine Creatinine 170.1 mg/dL (0.1-20.0) H 06/02/21 Unknown Urine Sodium 80 mmol/L 06/02/21 Unknown Urine Total Protein 52 mg/dL (5-11.8) H 06/02/21 Unknown Medications & Allergies - Medications Allergies/Adverse Reactions: Allergies No Known Allergies Allergy (Unverified 10/21/17 17:06) Home Medications: Home Medications Medication Instructions Recorded Confirmed Last Taken Type Losartan [Cozaar] 25 mg PO QDAY 05/31/21 05/31/21 Unknown History Metoprolol [Lopressor TAB] 50 mg PO BID 05/31/21 05/31/21 Unknown History NIFEdipine [Nifedipine ER] 30 mg PO QDAY 05/31/21 05/31/21 Unknown History Active Medications: Generic Name Dose Route Start Last Admin Trade Name Freq PRN Reason Stop Dose Admin Acetaminophen 650 mg 06/01/21 00:17 Acetaminophen 325 Mg Tab PO Q4H PRN Pain MILD(1-3)/Fever >100.5/ALVES Aspirin 325 mg 06/02/21 10:00 06/03/21 09:50 Aspirin Ec 325 Mg Tab PO 325 mg QDAY ROSE MARY Administration Atorvastatin Calcium 40 mg 06/02/21 22:00 06/03/21 21:49 Atorvastatin 40 Mg Tab PO 40 mg QHS ROSE MARY Administration Famotidine 20 mg 06/04/21 10:00 Famotidine 20 Mg Tab PO DAILY ROSE MARY Hydromorphone HCl 0.5 mg 06/01/21 00:17 Hydromorphone 1 Mg/1 Ml Inj IV Q3H PRN Pain , Severe (7-10) Sodium Chloride 1,000 mls @ 75 mls/hr 06/02/21 12:00 06/03/21 09:51 Nacl 0.9% 1000 Ml IV 75 mls/hr DIRECT ROSE MARY Administration Metoprolol Tartrate 50 mg 06/01/21 01:00 06/03/21 18:16 Metoprolol Tartrate 50 Mg Tab PO 50 mg BID@0800,1700 ROSE MARY Administration Nifedipine 30 mg 06/01/21 10:00 06/03/21 09:50 Nifedipine Xl 30 Mg Tab PO 30 mg QDAY ROSE MARY Administration Ondansetron HCl 4 mg 06/01/21 00:17 Ondansetron 4 Mg/2 Ml Inj IV Q8H PRN Nausea And Vomiting Oxycodone/Acetaminophen 1 tab 06/01/21 00:17 Oxycodone /Acetaminophen 5-325mg Tab PO Q6H PRN Pain, Moderate (4-6) Sodium Chloride 10 ml 06/01/21 10:00 06/03/21 21:49 Sodium Chloride 0.9% 10 Ml Flush Syringe IV 10 ml BID ROSE MARY Administration Sodium Chloride 10 ml 06/01/21 00:17 Sodium Chloride 0.9% 10 Ml Flush Syringe IV PRN PRN LINE FLUSH
--- NOTE | 2021-06-04 11:41 | Progress Note ---
Assessment and Plan Assessment and plan: (1) Vasovagal near syncope Current Visit: Yes Status: Acute Plan to address problem: IV fluids Carotid duplex scan Neurology consult Echocardiogram (2) TAMANNA (acute kidney injury) Current Visit: Yes Status: Acute Plan to address problem: Possible ATN Nephrology consult IV fluids (3) Hyperkalemia Current Visit: Yes Status: Acute Plan to address problem: Treated in the emergency room Recheck potassium level (4) Elevated troponin Current Visit: Yes Status: Acute Plan to address problem: Secondary to elevated creatinine NSTEMI 2 (5) Hypertension Current Visit: Yes Status: Chronic Qualifiers: Hypertension type: primary hypertension Qualified Code(s): I10 - Essential (primary) hypertension Plan to address problem: Continue antihypertensives (6) Facial nerve disorder, unspecified Current Visit: Yes Status: Acute Plan to address problem: Transient (7) DVT prophylaxis Current Visit: Yes Status: Acute Plan to address problem: On heparin and GI prophylaxis 06/01/2021 -Neurology consulted for syncopal episode and echo, carotid Doppler pending. -Patient has hyperkalemia and I ordered Kayexalate, neurology consulted for TAMANNA and recommendations appreciated. Patient is on IV fluid. -Troponin trended down to normal 06/02/2021 -Patient was seen by neurology and recommend to get MRI. CT head, carotid Doppler, echo were unremarkable. -MRI is pending -Renal ultrasound was done back nephrology and showed left nephrectomy, patient's creatinine is still elevated, continue with IV fluids. -Hyperkalemia resolved. -PT OT evaluation 06/03/2021 Patient with TAMANNA, improving. Creatinine 1.7 today from 2.1 yesterday. Continue current as per Nephrology Neurology and Nephrology following 06/04/21 Patient with acute kidney injury. Creatinine improved, now 1.3 today. Likely dc to [facility] tomorrow Check BMP in am History Interval history: Creatinine improving patient cannot give history Hospitalist Physical - Physical exam Narrative exam: Not in cardiopulmonary distress. The patient appeared well nourished and normally developed. Vital signs as documented. Head exam is unremarkable. No scleral icterus . Neck is without jugular venous distension, thyromegaly, or carotid bruits. Lungs are clear to auscultation. Cardiac exam reveals regular rate and Rhythm. Abdominal exam reveals normal bowel sounds, nontender, no organomegaly. Extremities are nonedematous and both femoral and pedal pulses are normal. TECHNICAL PROJECT COORDINATOR: Patient was confused - Constitutional Vitals: Temp Pulse Resp BP Pulse Ox 99.4 F 73 18 140/60 92 06/04/21 05:19 06/04/21 05:19 06/04/21 05:19 06/04/21 05:19 06/04/21 10:00 General appearance: Present: no acute distress, well-nourished HEART Score - HEART Score Age: > 65 Risk factors: 1-2 risk factors Troponin: Troponin T 0.015 ng/mL (0.00-0.029) 05/31/21 18:06 Troponin: 1-3x normal limit - Critical Actions Critical Actions: 4-6 pts:12-16.6% risk of adverse cardiac event. Should be admitted Results - Labs CBC & Chem 7: 06/04/21 06:36 06/04/21 06:36 Labs: Laboratory Last Values WBC 4.6 K/mm3 (4.5-11.0) 06/04/21 06:36 RBC 2.97 M/mm3 (3.65-5.03) L 06/04/21 06:36 Hgb 9.5 gm/dl (11.8-15.2) L 06/04/21 06:36 Hct 27.9 % (35.5-45.6) L 06/04/21 06:36 MCV 94 fl (84-94) 06/04/21 06:36 MCH 32 pg (28-32) 06/04/21 06:36 MCHC 34 % (32-34) 06/04/21 06:36 RDW 13.9 % (13.2-15.2) 06/04/21 06:36 Plt Count 192 K/mm3 (140-440) 06/04/21 06:36 Lymph % (Auto) 23.9 % (13.4-35.0) 06/04/21 06:36 [place] % (Auto) 11.6 % (0.0-7.3) H 06/04/21 06:36 Eos % (Auto) 3.5 % (0.0-4.3) 06/04/21 06:36 Baso % (Auto) 0.6 % (0.0-1.8) 06/04/21 06:36 Lymph # (Auto) 1.1 K/mm3 (1.2-5.4) L 06/04/21 06:36 [place] # (Auto) 0.5 K/mm3 (0.0-0.8) 06/04/21 06:36 Eos # (Auto) 0.2 K/mm3 (0.0-0.4) 06/04/21 06:36 Baso # (Auto) 0.0 K/mm3 (0.0-0.1) 06/04/21 06:36 Seg Neutrophils % 60.4 % (40.0-70.0) 06/04/21 06:36 Seg Neutrophils # 2.8 K/mm3 (1.8-7.7) 06/04/21 06:36 PT 14.1 Sec. (12.2-14.9) 05/31/21 11:46 INR 1.04 (0.87-1.13) 05/31/21 11:46 APTT 27.5 Sec. (24.2-36.6) 05/31/21 11:46 Thrombin Time 18.1 Sec. (15.1-19.6) 05/31/21 11:46 Sodium 138 mmol/L (137-145) 06/04/21 06:36 Potassium 3.8 mmol/L (3.6-5.0) 06/04/21 06:36 Chloride 103.4 mmol/L (98-107) 06/04/21 06:36 Carbon Dioxide 27 mmol/L (22-30) 06/04/21 06:36 Anion Gap 11 mmol/L 06/04/21 06:36 BUN 15 mg/dL (9-20) 06/04/21 06:36 Creatinine 1.3 mg/dL (0.8-1.3) 06/04/21 06:36 Estimated GFR > 60 ml/min 06/04/21 06:36 BUN/Creatinine Ratio 12 % 06/04/21 06:36 Glucose 83 mg/dL (75-100) 06/04/21 06:36 POC Glucose 89 mg/dL (70-105) 06/04/21 11:37 Hemoglobin A1c 6.5 % (4-6) H 06/01/21 11:50 Uric Acid 7.7 mg/dL (3.5-7.6) H 06/01/21 11:50 Calcium 8.8 mg/dL (8.4-10.2) 06/04/21 06:36 Phosphorus 2.60 mg/dL (2.5-4.5) 06/04/21 06:36 Total Bilirubin 0.20 mg/dL (0.1-1.2) 06/01/21 11:50 AST 12 units/L (5-40) 06/01/21 11:50 ALT < 5 units/L (7-56) L 06/01/21 11:50 Alkaline Phosphatase 86 units/L (35-129) 06/01/21 11:50 Total Creatine Kinase 93 units/L (55-170) 06/01/21 11:50 CK-MB (CK-2) 2.1 ng/mL (0.0-4.0) 05/31/21 11:46 CK-MB (CK-2) Rel Index 2.6 (0-4) 05/31/21 11:46 Troponin T 0.015 ng/mL (0.00-0.029) 05/31/21 18:06 Total Protein 7.7 g/dL (6.3-8.2) 06/01/21 11:50 Albumin 4.2 g/dL (3.9-5) 06/01/21 11:50 Albumin/Globulin Ratio 1.2 % 06/01/21 11:50 Triglycerides 103 mg/dL (2-149) 05/31/21 11:46 Cholesterol 108 mg/dL (50-199) 05/31/21 11:46 LDL Cholesterol Direct 50 mg/dL (50-130) 05/31/21 11:46 HDL Cholesterol 43 mg/dL (40-59) 05/31/21 11:46 Cholesterol/HDL Ratio 2.51 % 05/31/21 11:46 Urine Color Yellow (Yellow) 06/02/21 Unknown Urine Turbidity Clear (Clear) 06/02/21 Unknown Urine pH 6.0 (5.0-7.0) 06/02/21 Unknown Ur Specific [place] 1.015 (1.003-1.030) 06/02/21 Unknown Urine Protein 100 mg/dl mg/dL (Negative) 06/02/21 Unknown Urine Glucose (UA) Neg mg/dL (Negative) 06/02/21 Unknown Urine Ketones Neg mg/dL (Negative) 06/02/21 Unknown Urine Blood Neg (Negative) 06/02/21 Unknown Urine Nitrite Neg (Negative) 06/02/21 Unknown Urine Bilirubin Neg (Negative) 06/02/21 Unknown Urine Urobilinogen < 2.0 mg/dL (<2.0) 06/02/21 Unknown Ur Leukocyte Esterase Neg (Negative) 06/02/21 Unknown Urine WBC (Auto) 1.0 /HPF (0.0-6.0) 06/02/21 Unknown Urine RBC (Auto) 1.0 /HPF (0.0-6.0) 06/02/21 Unknown U Epithel Cells (Auto) 1.0 /HPF (0-13.0) 06/02/21 Unknown Urine Mucus Few /HPF 05/31/21 Unknown Urine Sperm 1+ /HPF (ENROLLMENT ADVISOR) 05/31/21 Unknown Urine Creatinine 169.2 mg/dL (0.1-20.0) H 06/02/21 Unknown Urine Creatinine 170.1 mg/dL (0.1-20.0) H 06/02/21 Unknown Protein/Creatinin Ratio 0.31 06/02/21 Unknown Urine Sodium 80 mmol/L 06/02/21 Unknown Urine Urea Nitrogen 845 06/02/21 Unknown Urine Total Protein 52 mg/dL (5-11.8) H 06/02/21 Unknown Urine Opiates Screen Negative 05/31/21 Unknown Urine Methadone Screen Negative 05/31/21 Unknown Ur Barbiturates Screen Negative 05/31/21 Unknown Ur Phencyclidine Scrn Negative 05/31/21 Unknown Ur Amphetamines Screen Negative 05/31/21 Unknown U Benzodiazepines Scrn Negative 05/31/21 Unknown Urine Cocaine Screen Negative 05/31/21 Unknown U Marijuana (THC) Screen Negative 05/31/21 Unknown Drugs of Abuse Note Disclamer 05/31/21 Unknown Plasma/Serum Alcohol < 0.01 % (0-0.07) 05/31/21 11:46 [place]/IV: Voiding Method Urinal Active Medications - Current Medications Current Medications: Generic Name Dose Route Start Last Admin Trade Name Freq PRN Reason Stop Dose Admin Acetaminophen 650 mg 06/01/21 00:17 Acetaminophen 325 Mg Tab PO Q4H PRN Pain MILD(1-3)/Fever >100.5/ALVES Aspirin 325 mg 06/02/21 10:00 06/03/21 09:50 Aspirin Ec 325 Mg Tab PO 325 mg QDAY ROSE MARY Administration Atorvastatin Calcium 40 mg 06/02/21 22:00 06/03/21 21:49 Atorvastatin 40 Mg Tab PO 40 mg QHS ROSE MARY Administration Famotidine 20 mg 06/04/21 10:00 Famotidine 20 Mg Tab PO DAILY ROSE MARY Hydromorphone HCl 0.5 mg 06/01/21 00:17 Hydromorphone 1 Mg/1 Ml Inj IV Q3H PRN Pain , Severe (7-10) Sodium Chloride 1,000 mls @ 75 mls/hr 06/02/21 12:00 06/03/21 09:51 Nacl 0.9% 1000 Ml IV 75 mls/hr DIRECT ROSE MARY Administration Metoprolol Tartrate 50 mg 06/01/21 01:00 06/03/21 18:16 Metoprolol Tartrate 50 Mg Tab PO 50 mg BID@0800,1700 ROSE MARY Administration Nifedipine 30 mg 06/01/21 10:00 06/03/21 09:50 Nifedipine Xl 30 Mg Tab PO 30 mg QDAY ROSE MARY Administration Ondansetron HCl 4 mg 06/01/21 00:17 Ondansetron 4 Mg/2 Ml Inj IV Q8H PRN Nausea And Vomiting Oxycodone/Acetaminophen 1 tab 06/01/21 00:17 Oxycodone /Acetaminophen 5-325mg Tab PO Q6H PRN Pain, Moderate (4-6) Sodium Chloride 10 ml 06/01/21 10:00 06/03/21 21:49 Sodium Chloride 0.9% 10 Ml Flush Syringe IV 10 ml BID ROSE MARY Administration Sodium Chloride 10 ml 06/01/21 00:17 Sodium Chloride 0.9% 10 Ml Flush Syringe IV PRN PRN LINE FLUSH
[2021-06-04] MEDS: FAMOTIDINE 20 MG TAB PO SCH (12:37)
[2021-06-04] MEDS: NIFEdipine XL 30 MG TAB PO SCH (12:37)
[2021-06-04] MEDS: ASPIRIN EC 325 MG TAB PO SCH (12:37)
[2021-06-04] MEDS: METOPROLOL TARTRATE 50 MG TAB PO SCH ×2 (12:42→19:03)
[2021-06-04] MEDS: SODIUM CHLORIDE 0.9% 1000 ML 1,000 ML IV SCH (12:43)
[2021-06-05] MEDS: SODIUM CHLORIDE 0.9% 1000 ML 1,000 ML IV SCH (06:10)
[2021-06-05 07:51] LABS: Basophils % (Auto) 0.5 % (0.0-1.8); Eosinophils # (Auto) 0.1 K/mm3 (0.0-0.4); Hematocrit 30.9 % (35.5-45.6); Hemoglobin 10.4 gm/dl (11.8-15.2); Lymphocytes % (Auto) 20.5 % (13.4-35.0); Mean Corpuscular HGB Conc 34 % (32-34); Mean Corpuscular Volume 93 fl (84-94); Monocytes # (Auto) 0.5 K/mm3 (0.0-0.8); Monocytes % (Auto) 10.8 % (0.0-7.3); Platelet Count 214 K/mm3 (140-440); Red Blood Count 3.32 M/mm3 (3.65-5.03)
[2021-06-05 07:58] LABS: BUN/Creatinine Ratio 9; Blood Urea Nitrogen 12 mg/dL (9-20); Hemolysis Index 1
--- NOTE | 2021-06-05 11:46 | Discharge Summary ---
Providers - Providers Date of Admission: 06/01/21 04:00 Date of discharge: 06/05/21 Attending physician: ASHANTI LAMAR 06/01/21 08:03 Consult to Physician [CONS] Routine Comment: Consulting Provider: JACINTO NGUYEN Physician Instructions: Reason For Exam: TAMANNA/ATN 06/01/21 08:04 Consult to Physician [CONS] Routine Comment: Consulting Provider: KAYLEE STREETER Physician Instructions: Reason For Exam: TIA 06/02/21 09:47 Occupational Therapy Evaluate and Treat [CONS] Routine Comment: Reason For Exam: evaluate and treat Physical Therapy Evaluation and Treat [CONS] Routine Comment: Reason For Exam: cva Primary care physician: ACCOUNT INSTALLATION SPECIALIST Hospitalization Condition: Stable Hospital course: (1) Vasovagal near syncope Current Visit: Yes Status: Acute Plan to address problem: IV fluids Carotid duplex scan Neurology consult Echocardiogram (2) TAMANNA (acute kidney injury) Current Visit: Yes Status: Acute Plan to address problem: Possible ATN Nephrology consult IV fluids (3) Hyperkalemia Current Visit: Yes Status: Acute Plan to address problem: Treated in the emergency room Recheck potassium level (4) Elevated troponin Current Visit: Yes Status: Acute Plan to address problem: Secondary to elevated creatinine NSTEMI 2 (5) Hypertension Current Visit: Yes Status: Chronic Qualifiers: Hypertension type: primary hypertension Qualified Code(s): I10 - Essential (primary) hypertension Plan to address problem: Continue antihypertensives (6) Facial nerve disorder, unspecified Current Visit: Yes Status: Acute Plan to address problem: Transient (7) DVT prophylaxis Current Visit: Yes Status: Acute Plan to address problem: On heparin and GI prophylaxis 06/01/2021 -Neurology consulted for syncopal episode and echo, carotid Doppler pending. -Patient has hyperkalemia and I ordered Kayexalate, neurology consulted for TAMANNA and recommendations appreciated. Patient is on IV fluid. -Troponin trended down to normal 06/02/2021 -Patient was seen by neurology and recommend to get MRI. CT head, carotid Doppler, echo were unremarkable. -MRI is pending -Renal ultrasound was done back nephrology and showed left nephrectomy, patient's creatinine is still elevated, continue with IV fluids. -Hyperkalemia resolved. -PT OT evaluation 06/03/2021 Patient with TAMANNA, improving. Creatinine 1.7 today from 2.1 yesterday. Continue current as per Nephrology Neurology and Nephrology following 06/04/21 Patient with acute kidney injury. Creatinine improved, now 1.3 today. Likely dc to [facility] tomorrow Check BMP in am 06/05/21 Patient with TAMANNA due to vasomotor nephropathy. Creatinine now normal. Stable to discharge to [facility] Disposition: DC/[place]-03 SNF W [facility] CERT Final Discharge Diagnosis (Prints w/discharge instructions): 1.Near syncope. 2.TAMANNA - Discharge Diagnoses (1) Near syncope Status: Acute (2) TAAMNNA (acute kidney injury) Status: Acute Comment: due to vasomotor nephropathy (3) Hyperkalemia Status: Acute (4) Dehydration Status: Acute (5) Vasomotor nephropathy Status: Acute Core Measure Documentation - Palliative Care Palliative Care/ Comfort Measures: Not Applicable - Core Measures Any of the following diagnoses?: none Exam - Constitutional Vitals: Temp Pulse Resp BP Pulse Ox 97.9 F 73 16 137/67 95 06/05/21 08:07 06/05/21 08:07 06/05/21 08:07 06/05/21 08:07 06/05/21 08:28 Plan Activity: advance as tolerated Diet: low salt Plan of Treatment: 1.Follow up with Physician at SNF in 3-5 days. 2.Follow up with Dr. Gaffney Nephrology in 1 week. Follow up with: PRIMARY MD SERAFIN [Primary Care Provider] - 3-5 Days
[2021-06-05] MEDS: NIFEdipine XL 30 MG TAB PO SCH (12:02)
[2021-06-05] MEDS: FAMOTIDINE 20 MG TAB PO SCH (12:02)
[2021-06-05] MEDS: ASPIRIN EC 325 MG TAB PO SCH (12:02)
[2021-06-05] MEDS: METOPROLOL TARTRATE 50 MG TAB PO SCH (12:02)
--- NOTE | 2021-06-05 12:43 | Progress Note ---
Assessment and Plan Assessment Vasovagal near syncope TAMANNA possibly 2/2 prerenal/ATN, ? underlying CKD, hx of left nephrectomy Hyperkalemia, Resolved Elevated troponin Hypertension Facial nerve disorder, unspecified Plan: Renal function reviewed, SCr level was 1.3 today, yesterday's SCr level was 1.3, Stage Most recent SCr level in [facility] prior to this admission was 1.3 on 09/11/19 On 0.9% NS infusion at 75 ml/hr Holding home losartan No significant proteinuria noted Renal US negative for obstruction, left nephrectomy Renally dose medications Strict I&O's daily [facility] Subjective Date of service: 06/05/21 Principal diagnosis: TAMANNA Interval history: Patient seen lying in bed. Objective - Vital Signs Vital signs: Vital Signs - 12hr 06/05/21 06/05/21 06/05/21 05:35 08:07 08:28 Temperature 98.8 F 97.9 F Pulse Rate 73 73 Respiratory 20 16 Rate Blood Pressure 124/68 137/67 O2 Sat by Pulse 94 94 95 Oximetry 06/05/21 06/05/21 11:27 12:02 Temperature 98.4 F Pulse Rate 68 66 Respiratory 16 Rate Blood Pressure 144/64 O2 Sat by Pulse 97 Oximetry - General Appearance General appearance: well-developed, appears stated age EENT: ATNC, PERRL, hearing intact, vision intact Neck: no JVD, supple Respiratory: Present: Decreased Breath Sounds Cardiology: S1S2 Gastrointestinal: normoactive bowel sounds Integumentary: warm and dry Neurologic: alert and oriented x3 Musculoskeletal: other (trace edema) Psychiatric: cooperative - Lab 06/05/21 07:20 06/05/21 07:20 Most recent lab results Calcium 9.0 mg/dL (8.4-10.2) 06/05/21 07:20 Phosphorus 2.70 mg/dL (2.5-4.5) 06/05/21 07:20 Urine Creatinine 169.2 mg/dL (0.1-20.0) H 06/02/21 Unknown Urine Creatinine 170.1 mg/dL (0.1-20.0) H 06/02/21 Unknown Urine Sodium 80 mmol/L 06/02/21 Unknown Urine Total Protein 52 mg/dL (5-11.8) H 06/02/21 Unknown Medications & Allergies - Medications Allergies/Adverse Reactions: Allergies No Known Allergies Allergy (Unverified 10/21/17 17:06) Home Medications: Home Medications Medication Instructions Recorded Confirmed Last Taken Type Metoprolol [Lopressor TAB] 50 mg PO BID 05/31/21 05/31/21 Unknown History NIFEdipine [Nifedipine ER] 30 mg PO QDAY 05/31/21 05/31/21 Unknown History Active Medications: Generic Name Dose Route Start Last Admin Trade Name Freq PRN Reason Stop Dose Admin Acetaminophen 650 mg 06/01/21 00:17 Acetaminophen 325 Mg Tab PO Q4H PRN Pain MILD(1-3)/Fever >100.5/ALVES Aspirin 325 mg 06/02/21 10:00 06/05/21 12:02 Aspirin Ec 325 Mg Tab PO 325 mg QDAY ROSE MARY Administration Atorvastatin Calcium 40 mg 06/02/21 22:00 06/04/21 22:43 Atorvastatin 40 Mg Tab PO 40 mg QHS ROSE MARY Administration Famotidine 20 mg 06/04/21 10:00 06/05/21 12:02 Famotidine 20 Mg Tab PO 20 mg DAILY ROSE MARY Administration Hydromorphone HCl 0.5 mg 06/01/21 00:17 Hydromorphone 1 Mg/1 Ml Inj IV Q3H PRN Pain , Severe (7-10) Sodium Chloride 1,000 mls @ 75 mls/hr 06/02/21 12:00 06/05/21 06:10 Nacl 0.9% 1000 Ml IV 75 mls/hr DIRECT ROSE MARY Administration Metoprolol Tartrate 50 mg 06/01/21 01:00 06/05/21 12:02 Metoprolol Tartrate 50 Mg Tab PO 50 mg BID@0800,1700 ROSE MARY Administration Nifedipine 30 mg 06/01/21 10:00 06/05/21 12:02 Nifedipine Xl 30 Mg Tab PO 30 mg QDAY ROSE MARY Administration Ondansetron HCl 4 mg 06/01/21 00:17 Ondansetron 4 Mg/2 Ml Inj IV Q8H PRN Nausea And Vomiting Oxycodone/Acetaminophen 1 tab 06/01/21 00:17 Oxycodone /Acetaminophen 5-325mg Tab PO Q6H PRN Pain, Moderate (4-6) Sodium Chloride 10 ml 06/01/21 10:00 06/05/21 12:04 Sodium Chloride 0.9% 10 Ml Flush Syringe IV 10 ml BID ROSE MARY Administration Sodium Chloride 10 ml 06/01/21 00:17 Sodium Chloride 0.9% 10 Ml Flush Syringe IV PRN PRN LINE FLUSH
[2021-06-05 16:36] VITALS: BP 136/68
== END 2021-06-05 14:15 | DRG 682 ==
LOC: ED 11:37 → 4A 14:15 → OBSVTOIN 06-01 04:00
PROVIDERS: ADMIT Internal Medicine; ATTEND Internal Medicine
DX: N17.0 Acute kidney failure with tubular necrosis (principal); I21.A1 Myocardial infarction type 2; G51.9 Disorder of facial nerve, unspecified; E87.5 Hyperkalemia; R77.8 Other specified abnormalities of plasma proteins; I10 Essential (primary) hypertension; E86.0 Dehydration; F03.90 Unspecified dementia, unspecified severity, without behavioral disturbance, psychotic disturbance, mood disturbance, and anxiety; Z87.891 Personal history of nicotine dependence; Z90.5 Acquired absence of kidney; Z79.899 Other long term (current) drug therapy; Z79.891 Long term (current) use of opiate analgesic; Z79.01 Long term (current) use of anticoagulants; M85.88 Other specified disorders of bone density and structure, other site
CPT/HCPCS: 36415; 70450; 70544; 70551; 71045; 72125; 76770; 80048; 80053; 80061; 80307; 80320; 81001; 82550; 82553; 82570; 82962; 83036; 84100; 84156; 84300; 84484; 84520; 84550; 85025; 85610; 85670; 85730; 93005; 93306; 93880; 96374; G0378; A9270-GY; G0480; J7030; J7070; J7120